=== PATIENT | female | born 1955 | race Caucasian/White ===

== ENCOUNTER 2022-05-14 06:22 | Emergency (ER) | payer MEDICARE, SELFPAY ==
[2022-05-14 06:45] VITALS: BP 133/72; PULSE 74; RESP 18; TEMP 36.6; O2SAT 97
--- NOTE | 2022-05-14 06:54 | ED.PSYCH ---
HPI - Psych General Chief Complaint: Psychiatric Symptoms Stated Complaint: Manic episode Time Seen by Provider: 05/14/22 06:55 Source: patient Mode of arrival: ambulatory History of Present Illness HPI Narrative: 66-year-old female history depression with psychotic symptoms, anxiety, Hypothyroidism presents to the ER with -- inability to relax and rest. She is not been able to sleep for the past 2 days. She had been on Seroquel and trazodone which did not help. She recently saw a physician in [place] who prescribed her Lamictal and Zyprexa. She has just taken 1 dose of Zyprexa. She denies suicidal or homicidal ideation. no history of drug or alcohol use. MD complaint: other ( anxious) Onset (ago): day(s) Duration: constant History of same: Yes Relieving factors: none Exacerbating factors: none Context: recent alcohol abuse Associated symptoms: denies other symptoms Treatments prior to arrival: none ( Patient is on Zyprexa and Lamictal. She has just taken 1 dose of Zyprexa but has not started on Lamictal) Related Data Home Medications Medication Instructions Recorded Confirmed buprenorphine 8 mg-naloxone 2 mg 8 film buccal PRN 05/14/22 05/14/22 sublingual film lamotrigine 25 mg tablet 25 mg PO DAILY 05/14/22 05/14/22 levothyroxine 125 mcg tablet 125 mcg PO DAILY 05/14/22 05/14/22 olanzapine 5 mg tablet 5 mg PO DAILY 05/14/22 05/14/22 trazodone 100 mg tablet 100 mg PO DAILY 05/14/22 05/14/22 Allergies Allergy/AdvReac Type Severity Reaction Status Date / Time cefaclor Allergy Unknown Skin Verified 05/14/22 06:41 Reaction Review of Systems Review of Systems: All systems reviewed & are unremarkable except as noted in HPI and below Constitutional: Constitutional: Reports as per HPI and Reports no additional constitutional complaints Eyes: Eyes: Reports as per HPI and Reports no additional eye complaints ENT: Reports system reviewed and no additional complaints, except as documented and Reports as per HPI Cardiovascular: Cardiovascular: Reports as per HPI and Reports no additional cardiovascular complaints Respiratory: Respiratory: Reports as per HPI and Reports no additional respiratory complaints Gastrointestinal: Gastrointestinal: Reports as per HPI and Reports no additional gastrointestinal complaints Genitourinary: Genitourinary: Reports no additional female genitourinary complaints and Reports as per HPI Musculoskeletal: Musculoskeletal: Reports no additional musculoskeletal complaints and Reports as per HPI Integumentary/Breasts: Skin/Breast: Reports system reviewed and no additional complaints, except as docu and Reports as per HPI Neurologic: Reports system reviewed and no additional complaints, except as documented and Reports as per HPI Psychiatric: Psychiatric: Reports no additional psychiatric complaints, Reports as per HPI and Reports anxiety Endocrine: Endocrine: Reports no additional endocrine complaints and Reports as per HPI Hematologic/Lymphatic: Hematologic/Lymphatic: Reports no additional hematologic/lymphatic complaints and Reports as per HPI Allergic/Immunologic: Allergic/Immunologic: Reports no additional allergic/immunologic complaints and Reports as per HPI PMFSH Past Medical History Medical History Gastric bezoar Surgical History Surgical History H/O exploratory laparotomy Social History Social History Substance use type: former substance user Exam Const: General: healthy appearing and no acute distress Nutritional Appearance: well nourished Orientation/consciousness: patient oriented x3 Limitations: no limitations HENMT: Head: normal to inspection Ears: external ears normal General nose exam: Normal external nose present Face and sinus: normal facial exam Mouth: Yes Normal oral and pa
--- NOTE | 2022-05-14 07:03 | PC.NURSE ---
report given to Dary woodward
[2022-05-14 07:30] VITALS: BP 129/64; PULSE 65; RESP 20; TEMP 36.8; O2SAT 98
[2022-05-14] MEDS: OLANZapine 10 MG INJ VIAL 5 MG IM (07:43)
[2022-05-14 08:23] VITALS: BP 126/78; PULSE 80; RESP 20; TEMP 36.6; O2SAT 99
== END 2022-05-14 08:27 | disposition home or self-care (01) ==
PROVIDERS: Emergency Provider Internal Medicine Critical Care Medicine; PCP Family Medicine
DX: F41.9 Anxiety disorder, unspecified (principal)
CPT/HCPCS: 96372; 99283

== ENCOUNTER 2022-07-27 06:16 | Emergency (ER) | payer MEDICARE, SELFPAY ==
[2022-07-27] VITALS (13 sets, daily range): BP systolic 125–144; BP diastolic 42–73; PULSE 70–75; RESP 16–22; TEMP 37; O2SAT 93–100
--- NOTE | ~2022-07-27 | CT_ITS ---
EXAMINATION: CT abdomen pelvis wo con DATE: 07/27/2022 07:53 INDICATION: Right lower quadrant abdominal pain. Nausea. TECHNIQUE: Computed tomography (CT) of the abdomen and pelvis was performed without intravenous contr ast. Automated exposure control and iterative reconstruction technique were employed. The dose-length product was 320.88 mGy-cm. COMPARISON: None. FINDINGS: The visualized portions of the lung bases demonstrate mild atelectasis. No pleural effusion . The heart size is normal. No pericardial effusion. There is a small sliding hiatal hernia. The live r, gallbladder, spleen, pancreas, adrenal glands, and left kidney are normal. There is a 3 mm stone i n right kidney. There is diverticulosis of the colon without evidence of diverticulitis. The appendix is not visualized. There is wall thickening of the rectosigmoid. There are no pathologically enlarge d lymph nodes. There is no free intraperitoneal fluid. There is dextroscoliosis of lumbar spine. IMPRESSION: 1. Wall thickening of the rectosigmoid, consistent with colitis. 2. Small sliding hiatal hernia. Reviewed, dictated and finalized at location B.
[2022-07-27 06:33] LABS: Appearance Urine Clear (Clear); Bilirubin Urine Negative (Negative); Blood Urine Negative (Negative); Glucose Urine UA Negative (Negative); Ketones Urine Negative (Negative); Leukocyte Esterase Ur Negative LEU/UL (Negative); Nitrate Urine Negative (Negative); Protein Urine Negative (Negative); Urobilinogen Urine 0.2 mg/dL (0.2-1.0)
[2022-07-27 06:34] LABS: Add Urine Microscopic? NO; Color Urine Light Yellow (Yellow)
[2022-07-27 07:17] LABS: Basophils Absolute Auto 0.03 K/mm3 (0.00-0.10); Basophils Percent Auto 0.5 % (0.0-1.0); Eosinophils Absolute Auto 0.08 K/mm3 (0.02-0.50); Eosinophils Percent Auto 1.3 % (1.0-6.0); Hemoglobin 11.9 g/dL (11.7-13.8); Immature Granulocyte Absolute 0.01 K/mm3 (0.00-0.00); Immature Granulocyte Percent A 0.2 % (0.0-0.0); Lymphocytes Absolute Auto 1.35 K/mm3 (1.10-4.50); Lymphocytes Percent Auto 22.5 % (18.0-42.0); Mean Corpuscular HGB Conc 32.2 g/dL (32.0-36.0); Mean Corpuscular Hemoglobin 30.4 pg (27.0-31.0); Mean Corpuscular Volume 94.4 fL (78.0-102.0); Mean Platelet Volume 10.4 fl (9.2-11.8); Monocytes Absolute Auto 0.41 K/mm3 (0.10-0.90); Monocytes Percent Auto 6.8 % (2.0-11.0); Neutrophils Absolute Auto 4.1 K/mm3 (1.7-7.2); Neutrophils Percent Auto 68.7 % (50.0-70.0); Platelet Count Result 212 K/mm3 (150-420); Red Blood Count 3.92 M/mm3 (4.20-5.40); Red Cell Distribution Width 11.7 % (11.6-14.4)
[2022-07-27 07:33] LABS: Alanine Aminotransferase 12 U/L (14-59); Albumin Level 3.6 g/dL (3.4-5.0); Alkaline Phosphatase 56 U/L (46-116); Amylase 47 U/L (25-115); Anion Gap -8 mmol/L (8-16); Aspartate Amino Transferase 14 U/L (15-37); Bilirubin,Total 0.3 mg/dL (0.00-1.00); Blood Urea Nitrogen 11 mg/dL (7-18); Calcium 8.8 mg/dL (8.5-10.1); Carbon Dioxide 29 mmol/L (21-32); Chloride 104 mmol/L (98-108); Estimated CRCL calculation 46 ml/min; Estimated Glomerular Filt Rate > 60; Glucose 99 mg/dL (70-99); Lipase 61 U/L (73-393); Osmolality Calculated 259 mOsm/kg (285-295); Potassium 3.3 mmol/L (3.5-5.1); Sodium 125 mmol/L (136-145); Total Protein 6.7 g/dL (6.4-8.2)
[2022-07-27 07:36] LABS: CRP < 0.2 mg/dL (0.0-0.9)
[2022-07-27 07:37] LABS: Lactic Acid Reflex 1.4 mmol/L (0.4-2.0)
--- NOTE | 2022-07-27 07:50 | PC.NURSE ---
pt is in ct at this time. pt reported she will be able to find a ride home in order to receive morphine that was ordered. pt reported that she was in pain and that the waist band on my pants even hurt.' pt reports nausea associated.
[2022-07-27] MEDS: SODIUM CHLORIDE 0.9% IV 1,000 ML 999 ML IV CONT (07:58)
[2022-07-27] MEDS: PANTOPRAZOLE SODIUM IV 40 MG VIAL IV PUSH (07:59)
[2022-07-27] MEDS: ONDANSETRON INJ 4 MG/2 ML VIAL IV PUSH (08:00)
[2022-07-27] MEDS: MORPHINE SULFATE (*CRX) 2 MG/ML INJ IV PUSH (08:02)
[2022-07-27] MEDS: KCL 20 MEQ/SW 100 ML 100 ML 50 MEQ IVPB (08:03)
--- NOTE | 2022-07-27 08:55 | PC.NURSE ---
pt reports the potassium is burning and wants drip stopped. drip is stopped and erp is aware. pt will not allow titration of the medication. pt was up to rr without difficulty, lying on stretcher watching tv. nad noted. will continue to monitor.
--- NOTE | 2022-07-27 09:21 | PC.NURSE ---
iv medication infusing as ordered without difficulty. pt is calling for transport home. will continue to monitor.
--- NOTE | 2022-07-27 09:42 | PC.NURSE ---
pt up to rr without distress. pt is awaiting ride to arrive, reports she will be here around 1030. will continue to monitor.
--- NOTE | 2022-07-27 09:45 | ED.ABDPAIN ---
HPI - Abdominal Pain General Chief Complaint: Abdominal Pain Stated Complaint: Abd Pain Time Seen by Provider: 07/27/22 07:03 Source: patient and RN notes reviewed Mode of arrival: ambulatory Limitations: no limitations History of Present Illness MD elicited complaint: abdominal pain Pertinent past history: none Onset (ago): day(s) (3) Pain Consistency: colicky Location: diffuse and suprapubic Severity: mild Pain scale (0-10): 5 Quality: cramping, aching and dull Radiation: none Migration to: periumbilical Exacerbating factors: nothing Relieving factors: nothing Associated symptoms: nausea Related Data Patient : No Home Medications Medication Instructions Recorded Confirmed buprenorphine 8 mg-naloxone 2 mg 8 film buccal PRN 05/14/22 07/27/22 sublingual film levothyroxine 125 mcg tablet 125 mcg PO DAILY 05/14/22 07/27/22 olanzapine 5 mg tablet 5 mg PO DAILY 05/14/22 07/27/22 trazodone 100 mg tablet 100 mg PO DAILY 05/14/22 07/27/22 meloxicam 15 mg tablet 15 mg PO DAILY 07/27/22 07/27/22 Allergies Allergy/AdvReac Type Severity Reaction Status Date / Time cefaclor Allergy Unknown Skin Verified 05/14/22 06:41 Reaction Review of Systems Review of Systems: All systems reviewed & are unremarkable except as noted in HPI and below Constitutional: Constitutional: Reports no additional constitutional complaints Eyes: Eyes: Reports no additional eye complaints ENT: Reports system reviewed and no additional complaints, except as documented Cardiovascular: Cardiovascular: Reports no additional cardiovascular complaints Respiratory: Respiratory: Reports no additional respiratory complaints Gastrointestinal: Gastrointestinal: Reports abdominal pain and Reports nausea Genitourinary: Genitourinary: Reports no additional female genitourinary complaints Musculoskeletal: Musculoskeletal: Reports no additional musculoskeletal complaints Integumentary/Breasts: Skin/Breast: Reports system reviewed and no additional complaints, except as docu Neurologic: Reports system reviewed and no additional complaints, except as documented Psychiatric: Psychiatric: Reports no additional psychiatric complaints Endocrine: Endocrine: Reports no additional endocrine complaints Hematologic/Lymphatic: Hematologic/Lymphatic: Reports no additional hematologic/lymphatic complaints Allergic/Immunologic: Allergic/Immunologic: Reports no additional allergic/immunologic complaints PMFSH Past Medical History Medical History Colitis Gastric bezoar Surgical History Surgical History H/O exploratory laparotomy Social History Social History Substance use type: former substance user Exam Const: General: healthy appearing, no acute distress and well nourished Nutritional Appearance: well nourished Orientation/consciousness: patient oriented x3 Limitations: no limitations HENMT: Head: normal to inspection Ears: external ears normal, TM's normal bilaterally and EAC's normal Face/Nose/Sinus: Normal external nose present, Normal nares present, normal facial exam and sinuses nontender Face and sinus: normal facial exam and sinuses nontender Mouth: Yes Normal oral and palatal mucosa present and Yes moist mucous membranes Teeth and gingiva: dentition normal Throat: posterior oropharynx normal Eyes: Conjunctivae: conjunctivae normal Pupils: Equal, round and reactive pupils present EOM: EOMs intact bilaterally Neck: Neck: normal visual inspection, no lymphadenopathy and no meningeal signs Chest: Chest palpation & inspection: normal inspection of the chest Resp: Effort & Inspection: normal respiratory effort Auscultation: clear to auscultation bilaterally Cardio: Rate: regular rate Rhythm: regular rhythm GI: GI Palp: Yes Soft to palpation and Yes Tende
--- NOTE | 2022-07-27 10:31 | PC.NURSE ---
RX WERE CALLED INTO [facility] REQUESTED BY PT DUE TO [facility] CLOSING AND PT DOES NOT WANT TO GO TO [facility].
== END 2022-07-27 10:05 | disposition home or self-care (01) ==
PROVIDERS: Emergency Medicine; Emergency Provider Emergency Medicine; PCP Family Medicine
DX: K52.9 Noninfective gastroenteritis and colitis, unspecified (principal)
CPT/HCPCS: 36415; 74176; 80053; 81003; 82150; 83605; 83690; 85025; 86140; 96365; 96367; 96375; 99284; C9113; J2270; J2405; J2543; J3480; J7030

== ENCOUNTER 2022-07-30 08:15 | Emergency (ER) | payer MEDICARE, SELFPAY ==
[2022-07-30 08:26] VITALS: BP 134/69; PULSE 90; RESP 16; TEMP 36.1; O2SAT 98
[2022-07-30] MEDS: KETOROLAC 30 MG/ML VIAL (*BKC) IM (08:55)
[2022-07-30 09:01] LABS: Basophils Absolute Auto 0.05 K/mm3 (0.00-0.10); Basophils Percent Auto 0.9 % (0.0-1.0); Eosinophils Absolute Auto 0.09 K/mm3 (0.02-0.50); Eosinophils Percent Auto 1.6 % (1.0-6.0); Hematocrit 35.5 % (35.0-42.0); Hemoglobin 11.3 g/dL (11.7-13.8); Immature Granulocyte Absolute 0.01 K/mm3 (0.00-0.00); Immature Granulocyte Percent A 0.2 % (0.0-0.0); Lymphocytes Absolute Auto 1.31 K/mm3 (1.10-4.50); Lymphocytes Percent Auto 22.7 % (18.0-42.0); Mean Corpuscular HGB Conc 31.8 g/dL (32.0-36.0); Mean Corpuscular Hemoglobin 30.4 pg (27.0-31.0); Mean Corpuscular Volume 95.4 fL (78.0-102.0); Mean Platelet Volume 10.5 fl (9.2-11.8); Monocytes Absolute Auto 0.49 K/mm3 (0.10-0.90); Monocytes Percent Auto 8.5 % (2.0-11.0); Neutrophils Absolute Auto 3.8 K/mm3 (1.7-7.2); Neutrophils Percent Auto 66.1 % (50.0-70.0); Platelet Count Result 208 K/mm3 (150-420); Red Blood Count 3.72 M/mm3 (4.20-5.40); Red Cell Distribution Width 11.7 % (11.6-14.4); White Blood Count 5.8 K/mm3 (4.8-10.8)
[2022-07-30 09:04] LABS: Add Urine Microscopic? YES; Appearance Urine Clear (Clear); Bilirubin Urine Negative (Negative); Blood Urine Negative (Negative); Color Urine Yellow (Yellow); Glucose Urine UA Negative (Negative); Ketones Urine Negative (Negative); Leukocyte Esterase Ur Trace LEU/UL (Negative); Nitrate Urine Negative (Negative); Protein Urine Negative (Negative); Specific Grav Ur 1.015 (1.010-1.020); Urobilinogen Urine 0.2 mg/dL (0.2-1.0)
[2022-07-30 09:09] LABS: Bacteria Urine Trace /hpf; Mucus Urine Few /lpf; RBC Urine None seen /hpf (0-2); Squamous Epithelial Cell Urine Few /hpf (Few); WBC Urine 0-3 /hpf (0-3)
--- NOTE | 2022-07-30 09:12 | ED.ABDPAIN ---
HPI - Abdominal Pain General Chief Complaint: Abdominal Pain Stated Complaint: ABD PAIN Time Seen by Provider: 07/30/22 08:22 Source: patient Mode of arrival: ambulatory Limitations: no limitations History of Present Illness HPI narrative: this is a 67-year-old female that was recently seen in our emergency department about 3 days ago with abdominal pain localizing to her left lower quadrant had a CT scan which showed that she had acute colitis was started on antibiotics, currently the patient returned because she advanced her diet too soon and start developing some dull aching in her left lower quadrant. Currently there is no fever chills are vitals are stable, rates her pain about a 5/10 with no dysuria no flank pain no hematuria. MD elicited complaint: abdominal pain Pertinent past history: constipation Onset (ago): day(s) Pain Consistency: intermittent Location: LLQ Severity: mild Quality: dull Radiation: none Migration to: no migration Exacerbating factors: eating Related Data Home Medications Medication Instructions Recorded Confirmed buprenorphine 8 mg-naloxone 2 mg 8 film buccal PRN 05/14/22 07/30/22 sublingual film levothyroxine 125 mcg tablet 125 mcg PO DAILY 05/14/22 07/30/22 olanzapine 5 mg tablet 5 mg PO DAILY 05/14/22 07/30/22 trazodone 100 mg tablet 100 mg PO DAILY 05/14/22 07/30/22 meloxicam 15 mg tablet 15 mg PO DAILY 07/27/22 07/30/22 Allergies Allergy/AdvReac Type Severity Reaction Status Date / Time cefaclor Allergy Unknown Skin Verified 07/30/22 08:30 Reaction Review of Systems Review of Systems: All systems reviewed & are unremarkable except as noted in HPI and below PMFSH Past Medical History Medical History Colitis Gastric bezoar Surgical History Surgical History H/O exploratory laparotomy Social History Social History Substance use type: former substance user Exam Const: General: healthy appearing and no acute distress Limitations: no limitations and altered mental status HENMT: Head: normal to inspection Ears: external ears normal Face/Nose/Sinus: Normal external nose present Face and sinus: normal facial exam Mouth: Yes Normal oral and palatal mucosa present Teeth and gingiva: dentition normal Eyes: Conjunctivae: conjunctivae normal Pupils: Equal, round and reactive pupils present Neck: Neck: normal visual inspection, no lymphadenopathy and no meningeal signs Chest: Chest palpation & inspection: normal inspection of the chest Resp: Effort & Inspection: normal respiratory effort Auscultation: clear to auscultation bilaterally Cardio: Rate: regular rate Rhythm: regular rhythm GI: GI Palp: Yes Soft to palpation and Yes Tenderness to palpation present (GI) : General: Yes bladder normal to palpation Back/Spine/Pelvis: Back: no CVA tenderness Skin: General skin exam: normal color Rashes: no rashes Neuro: General: patient oriented x3, moves all extremities, no meningeal signs and no focal motor deficits Extrem: General: normal to inspection, no clubbing, cyanosis or edema and no pedal edema Psych: Mental Status: mental status grossly normal Affect: normal affect Course Course Emergency Course: Patient received IM Toradol reassessment of patient pain level has improved, patient was nauseous and received ODT Zofran, labs reviewed with patient, overall patient feeling more comfortable. Vital Signs Vital signs: Vital Signs Temperature 36.1 C L 07/30/22 08:26 Pulse Rate 90 07/30/22 08:26 Respiratory Rate 16 07/30/22 08:26 Blood Pressure 134/69 07/30/22 08:26 Pulse Oximetry 98 07/30/22 08:26 Oxygen Delivery Room Air 07/30/22 08:26 Temperature 36.1 C L 07/30/22 08:26 Pulse Rate 90 07/30/22 08:26 Respiratory Rate 16 07/30/22 08:26 Blood Pressure
[2022-07-30 09:15] LABS: Partial Thromboplastin Time 28.5 SEC (23.90-30.70); Prothrombin Time 11.3 Seconds (9.50-12.10)
[2022-07-30] MEDS: ONDANSETRON HCL ODT 4 MG TABLET PO (09:16)
[2022-07-30 09:17] LABS: Alanine Aminotransferase 16 U/L (14-59); Alkaline Phosphatase 63 U/L (46-116); Anion Gap 7 mmol/L (8-16); Aspartate Amino Transferase 13 U/L (15-37); Bilirubin,Total 0.3 mg/dL (0.00-1.00); Blood Urea Nitrogen 12 mg/dL (7-18); Calcium 9.2 mg/dL (8.5-10.1); Carbon Dioxide 30 mmol/L (21-32); Chloride 102 mmol/L (98-108); Estimated Glomerular Filt Rate > 60; Glucose 99 mg/dL (70-99); Lipase 72 U/L (73-393); Osmolality Calculated 287 mOsm/kg (285-295); Potassium 3.8 mmol/L (3.5-5.1); Sodium 139 mmol/L (136-145); Total Protein 7.4 g/dL (6.4-8.2)
[2022-07-30 09:22] LABS: Lactic Acid Reflex 0.3 mmol/L (0.4-2.0)
[2022-07-30 09:37] VITALS: BP 127/68; PULSE 62; RESP 16; TEMP 36.1; O2SAT 93
== END 2022-07-30 09:40 | disposition home or self-care (01) ==
PROVIDERS: Emergency Provider Emergency Medicine; PCP Family Medicine
DX: K52.9 Noninfective gastroenteritis and colitis, unspecified (principal)
CPT/HCPCS: 36415; 80053; 81001; 83605; 83690; 85025; 85610; 85730; 96372; 99283; A9270; J1885

== ENCOUNTER 2022-08-19 10:49 | Emergency (ER) | payer MEDICARE, SELFPAY ==
[2022-08-19 10:55] VITALS: BP 127/53; PULSE 72; RESP 14; TEMP 35.8; O2SAT 99
--- NOTE | 2022-08-19 11:09 | ED.GENADULT ---
HPI - General Adult General Chief complaint: Back Pain/Injury Stated complaint: T9 fracture and in a lot of pain Time Seen by Provider: 08/19/22 11:00 History of Present Illness HPI narrative: Kika is a 67F with a PMH of chronic back pain 2/2 a T9 fracture, hypothyroidism, duodenal ulcers and previous opiate addiction that presented to the ED with back pain. It is a non-radiating aching pain in her mid back that started after doing chores. There is no numbness, weakness, paralysis, or loss of bowel or bladder control. No falls or trauma reported. She has f/u with a specialist in [place] on the . Related Data Home Medications Medication Instructions Recorded Confirmed buprenorphine 8 mg-naloxone 2 mg 8 film buccal PRN 05/14/22 08/19/22 sublingual film levothyroxine 125 mcg tablet 125 mcg PO DAILY 05/14/22 08/19/22 olanzapine 5 mg tablet 5 mg PO DAILY 05/14/22 08/19/22 trazodone 100 mg tablet 100 mg PO DAILY 05/14/22 08/19/22 meloxicam 15 mg tablet 15 mg PO DAILY 07/27/22 08/19/22 Allergies Allergy/AdvReac Type Severity Reaction Status Date / Time cefaclor Allergy Unknown Skin Verified 08/19/22 11:01 Reaction Review of Systems Review of Systems: All systems reviewed & are unremarkable except as noted in HPI and below Constitutional: Constitutional: Reports as per HPI, Reports no additional constitutional complaints, Denies chills and Denies fatigue PMFSH Past Medical History Medical History Colitis Gastric bezoar Surgical History Surgical History H/O exploratory laparotomy Social History Social History Substance use type: former substance user Exam Const: General: healthy appearing, no acute distress and alert Nutritional Appearance: well nourished Orientation/consciousness: patient oriented x3 Limitations: no limitations HENMT: Head: normal to inspection Ears: external ears normal Face/Nose/Sinus: Normal external nose present Eyes: Conjunctivae: conjunctivae normal Neck: Neck: normal visual inspection and no lymphadenopathy Chest: Chest palpation & inspection: normal inspection of the chest Resp: Effort & Inspection: normal respiratory effort Cardio: Rate: regular rate GI: Inspection: non-distended GI Palp: Yes Soft to palpation and No Tenderness to palpation present (GI) Skin: General skin exam: normal color Rashes: no rashes Wounds: no wounds Neuro: General: patient oriented x3 Cranial nerves: Yes Nystagmus not present Speech: normal speech Extrem: General: normal to inspection Psych: Mental Status: mental status grossly normal Affect: normal affect Course Vital Signs Vital signs: Vital Signs Temperature 96.5 F L 08/19/22 10:55 Pulse Rate 72 08/19/22 10:55 Respiratory Rate 14 08/19/22 10:55 Blood Pressure 127/53 L 08/19/22 10:55 Pulse Oximetry 99 08/19/22 10:55 Oxygen Delivery Room Air 08/19/22 10:55 Temperature 96.5 F L 08/19/22 10:55 Pulse Rate 72 08/19/22 10:55 Respiratory Rate 14 08/19/22 10:55 Blood Pressure 127/53 L 08/19/22 10:55 Pulse Oximetry 99 08/19/22 10:55 Oxygen Delivery Room Air 08/19/22 10:55 Medical Decision Making Vital Signs Vital Signs: Vital Signs Temperature 96.5 F L 08/19/22 10:55 Pulse Rate 72 08/19/22 10:55 Respiratory Rate 14 08/19/22 10:55 Blood Pressure 127/53 L 08/19/22 10:55 Pulse Oximetry 99 08/19/22 10:55 Oxygen Delivery Room Air 08/19/22 10:55 Temperature 96.5 F L 08/19/22 10:55 Pulse Rate 72 08/19/22 10:55 Respiratory Rate 14 08/19/22 10:55 Blood Pressure 127/53 L 08/19/22 10:55 Pulse Oximetry 99 08/19/22 10:55 Oxygen Delivery Room Air 08/19/22 10:55 Discharge Plan Discharge Clinical Impression: Back pain Patient Disposition: Home, Self-Care Condit
--- NOTE | 2022-08-19 11:37 | PC.NURSE ---
PT DECLINES INJECTION. ERP IS AWARE.
== END 2022-08-19 11:35 | disposition home or self-care (01) ==
LOC: CHSED 11:56
PROVIDERS: Emergency Provider Family Medicine; PCP Family Medicine
DX: M54.9 Dorsalgia, unspecified (principal)
CPT/HCPCS: 99283

== ENCOUNTER 2022-09-17 07:24 | Emergency (ER) | payer MEDICARE, SELFPAY ==
--- NOTE | ~2022-09-17 | CT_ITS ---
EXAMINATION: CT abdomen pelvis w con DATE: 09/17/2022 09:52 INDICATION: Abdominal pain. Nausea and vomiting. TECHNIQUE: Computed tomography (CT) of the abdomen and pelvis was performed with 100 mL Omnipaque 350 intravenous contrast. Automated exposure control and iterative reconstruction technique were employe d. The dose-length product was 317.04 mGy-cm. COMPARISON: CT abdomen and pelvis 07/27/2022 FINDINGS: The visualized portions of the lung bases demonstrate mild atelectasis. No pleural effusion . The heart size is normal. No pericardial effusion. There is a small sliding hiatal hernia. The live r, gallbladder, spleen, pancreas, adrenal glands, and left kidney are normal. There is a 3 mm stone i n right kidney. There is diverticulosis of the colon without evidence of diverticulitis. The appendix is normal. There are no pathologically enlarged lymph nodes. There is no free intraperitoneal fluid. There is mild lumbar spondylosis. Lumbar dextroscoliosis is noted. IMPRESSION: 1. Small sliding hiatal hernia. 2. Small nonobstructing right kidney stone. Reviewed, dictated and finalized at location E. [facility]INING
[2022-09-17 08:20] VITALS: BP 127/69; PULSE 67; RESP 20; TEMP 35.9; O2SAT 99
--- NOTE | 2022-09-17 08:36 | ECG_ITS ---
Measurements Intervals [place] Rate: 56 P: -3 NH: 140 QRS: 54 QRSD: 99 T: 37 QT: 447 QTc: 433 Interpretive Statements SINUS BRADYCARDIA OTHERWISE UNREMARKABLE ECG NO PREVIOUS ECG AVAILABLE FOR COMPARISON Electronically Signed On 09-18-2022 7:50:15 TRAIN ANNOUNCER by David Campos M.D.
[2022-09-17 09:04] LABS: Basophils Absolute Auto 0.04 K/mm3 (0.00-0.10); Basophils Percent Auto 0.5 % (0.0-1.0); Eosinophils Absolute Auto 0.09 K/mm3 (0.02-0.50); Eosinophils Percent Auto 1.2 % (1.0-6.0); Hematocrit 38.5 % (35.0-42.0); Hemoglobin 12.5 g/dL (11.7-13.8); Immature Granulocyte Absolute 0.02 K/mm3 (0.00-0.00); Immature Granulocyte Percent A 0.3 % (0.0-0.0); Lymphocytes Absolute Auto 1.45 K/mm3 (1.10-4.50); Lymphocytes Percent Auto 18.7 % (18.0-42.0); Mean Corpuscular HGB Conc 32.5 g/dL (32.0-36.0); Mean Corpuscular Hemoglobin 30.6 pg (27.0-31.0); Mean Corpuscular Volume 94.1 fL (78.0-102.0); Mean Platelet Volume 10.4 fl (9.2-11.8); Monocytes Absolute Auto 0.49 K/mm3 (0.10-0.90); Monocytes Percent Auto 6.3 % (2.0-11.0); Neutrophils Absolute Auto 5.7 K/mm3 (1.7-7.2); Platelet Count Result 227 K/mm3 (150-420); Red Blood Count 4.09 M/mm3 (4.20-5.40); Red Cell Distribution Width 11.9 % (11.6-14.4); White Blood Count 7.8 K/mm3 (4.8-10.8)
[2022-09-17 09:05] LABS: Add Urine Microscopic? YES; Appearance Urine Clear (Clear); Bilirubin Urine Negative (Negative); Blood Urine Negative (Negative); Color Urine Yellow (Yellow); Glucose Urine UA Negative (Negative); Ketones Urine Trace (Negative); Leukocyte Esterase Ur Negative LEU/UL (Negative); Nitrate Urine Negative (Negative); Protein Urine Negative (Negative); Specific Grav Ur 1.025 (1.010-1.020); Urobilinogen Urine 0.2 mg/dL (0.2-1.0)
[2022-09-17 09:12] LABS: Bacteria Urine Trace /hpf; RBC Urine None seen /hpf (0-2); Squamous Epithelial Cell Urine Few /hpf (Few); WBC Urine None seen /hpf (0-3)
[2022-09-17] MEDS: SODIUM CHLORIDE 0.9% IV 1,000 ML 999 ML IV CONT (09:18)
[2022-09-17] MEDS: ONDANSETRON INJ 4 MG/2 ML VIAL IV PUSH (09:19)
[2022-09-17] MEDS: PANTOPRAZOLE SODIUM IV 40 MG VIAL IV PUSH (09:20)
[2022-09-17 09:25] LABS: Alanine Aminotransferase 18 U/L (14-59); Alkaline Phosphatase 76 U/L (46-116); Anion Gap 7 mmol/L (8-16); Aspartate Amino Transferase 15 U/L (15-37); Bilirubin,Total 0.4 mg/dL (0.00-1.00); Blood Urea Nitrogen 16 mg/dL (7-18); Calcium 9.1 mg/dL (8.5-10.1); Carbon Dioxide 31 mmol/L (21-32); Chloride 105 mmol/L (98-108); Estimated CRCL calculation 44 ml/min; Estimated Glomerular Filt Rate 57; Glucose 100 mg/dL (70-99); Lipase 63 U/L (73-393); Osmolality Calculated 297 mOsm/kg (285-295); Potassium 3.6 mmol/L (3.5-5.1); Sodium 143 mmol/L (136-145); Total Protein 7.6 g/dL (6.4-8.2); Troponin I 10.4 ng/L (0.00-60.4)
[2022-09-17 09:27] LABS: Lactic Acid Reflex 0.4 mmol/L (0.4-2.0)
[2022-09-17 09:42] LABS: SARS-CoV-2 RNA PCR Negative (Negative)
[2022-09-17 09:58] LABS: Influenza A QL RT-PCR Negative (Negative); Influenza B QL RT-PCR Negative (Negative)
--- NOTE | 2022-09-17 10:04 | ED.NAVMDI ---
HPI - Nausea/Vomiting/Diarrhea General Chief complaint: Nausea/Vomiting/Diarrhea Stated complaint: VOMITING Time Seen by Provider: 09/17/22 07:30 Source: patient Mode of arrival: ambulatory Limitations: no limitations History of Present Illness HPI Narrative: This is a 67-year-old female with history of colitis presents with multiple episodes of nausea vomiting with diffuse abdominal pain, with epigastric discomfort. The patient had started having episodes of nausea vomiting with abdominal discomfort over the last 2 days with no diarrhea or constipation no fever chills, the patient does have a headache with no blurry vision. No fever chills no chest pain no shortness of breath no flank pain no dysuria. MD elicited complaint: nausea, vomiting and abdominal pain Onset (ago): day(s) Description of vomiting: watery Associated nausea: Yes Associated abdominal pain: Yes Location of pain: diffuse and epigastric Severity: moderate Related Data Home Medications Medication Instructions Recorded Confirmed buprenorphine 8 mg-naloxone 2 mg 8 film buccal PRN 05/14/22 09/17/22 sublingual film levothyroxine 125 mcg tablet 125 mcg PO DAILY 05/14/22 09/17/22 trazodone 100 mg tablet 100 mg PO DAILY 05/14/22 09/17/22 meloxicam 15 mg tablet 15 mg PO DAILY 07/27/22 09/17/22 Allergies Allergy/AdvReac Type Severity Reaction Status Date / Time cefaclor Allergy Unknown Skin Verified 09/17/22 08:41 Reaction Review of Systems Review of Systems: All systems reviewed & are unremarkable except as noted in HPI and below PMFSH Past Medical History Medical History Colitis Gastric bezoar Surgical History Surgical History H/O exploratory laparotomy Social History Social History Substance use type: former substance user Exam Const: General: healthy appearing Nutritional Appearance: well nourished Orientation/consciousness: patient oriented x3 Limitations: no limitations HENMT: Head: normal to inspection Face and sinus: normal facial exam Mouth: Yes Normal oral and palatal mucosa present Eyes: Conjunctivae: conjunctivae normal Pupils: Equal, round and reactive pupils present EOM: EOMs intact bilaterally Neck: Neck: no lymphadenopathy and no meningeal signs Chest: Chest palpation & inspection: normal inspection of the chest Resp: Effort & Inspection: normal respiratory effort Auscultation: clear to auscultation bilaterally Cardio: Rate: regular rate Rhythm: regular rhythm GI: GI Palp: Yes Soft to palpation Auscultation: normal bowel sounds Urinary Catheter: Urinary Catheter: patent and draining Skin: General skin exam: normal color Rashes: no rashes Wounds: no wounds Neuro: General: patient oriented x3 Cranial nerves: Yes Nystagmus not present Speech: normal speech Gait exam (Neuro): Normal gait present Extrem: General: normal to inspection Psych: Mental Status: mental status grossly normal Affect: normal affect Attitude: cooperative Course Course Emergency Course: Labs reviewed with patient and CT abdomen as well. Patient did have IV Tylenol 1g, IV fluids and IV Zofran and reassessment patient her symptoms have improved as well as receiving IV Protonix. Vital Signs Vital signs: Vital Signs Temperature 35.9 C L 09/17/22 08:20 Pulse Rate 67 09/17/22 08:20 Respiratory Rate 20 09/17/22 08:20 Blood Pressure 127/69 09/17/22 08:20 Pulse Oximetry 99 09/17/22 08:20 Oxygen Delivery Room Air 09/17/22 08:20 Temperature 35.9 C L 09/17/22 08:20 Pulse Rate 67 09/17/22 08:20 Respiratory Rate 20 09/17/22 08:20 Blood Pressure 127/69 09/17/22 08:20 Pulse Oximetry 99 09/17/22 08:20 Oxygen Delivery Room Air 09/17/22 08:20 MDM - Nausea/Vomiting/Diarrhea Lab Data 09/17/22 08:58
[2022-09-17 10:48] VITALS: BP 118/62; PULSE 84; RESP 16; TEMP 36.6; O2SAT 99
== END 2022-09-17 10:50 | disposition home or self-care (01) ==
PROVIDERS: Emergency Provider Emergency Medicine; PCP Family Medicine
DX: K52.9 Noninfective gastroenteritis and colitis, unspecified (principal); R11.2 Nausea with vomiting, unspecified
CPT/HCPCS: 36415; 74177; 80053; 81001; 83605; 83690; 84484; 85025; 87502; 93005; 96361; 96374; 96375; 99284; C9113; J0131; J2405; J7030; Q9967; U0003; U0005

== ENCOUNTER 2022-10-27 10:36 | Outpatient (CLI) | payer MEDICARE, SELFPAY ==
--- NOTE | ~2022-10-27 | XR_ITS ---
XR chest 2V DATE: 10/27/2022 11:17 INDICATION: Chest tightness, shortness of breath for 2 months. History of T9 fracture. TECHNIQUE: 2 views COMPARISON: 12/16/2007 left RIBS with PA expiration chest radiograph FINDINGS: Moderate T9 chronic compression fracture deformity and probable old fracture deformity of t he lower sternum. Osteopenia. Normal heart size. No hilar or mediastinal enlargement. No pulmonary infiltrate or consolidation, ple ural effusion or pulmonary vascular congestion or pneumothorax is detected. IMPRESSION: No active cardiopulmonary disease Reviewed, dictated and finalized at location L. LE HOME SET UP PERSON
--- NOTE | ~2022-10-27 | XR_ITS ---
Right wrist Technique: PA, oblique, lateral, and ulnar deviation views were obtained. Clinical History: Pain Findings: No acute fracture or dislocation is seen. Evidence of prior ORIF for distal radial fracture , now healed.. Joint spaces are preserved. Soft tissues are unremarkable. Impression: No acute abnormality. Prior ORIF for now healed distal radial fracture. Reviewed, dictated and finalized at location . REHENSIVE ADVISOR Impression: No acute abnormality. Prior ORIF for now healed distal radial fracture.
== END 2022-10-27 10:37 | disposition home or self-care (01) ==
LOC: CHSIMG 10:45
PROVIDERS: PCP Family Medicine; Visit Provider Family Medicine
DX: R07.9 Chest pain, unspecified (principal); M25.531 Pain in right wrist; Z98.890 Other specified postprocedural states
CPT/HCPCS: 71046; 73110

== ENCOUNTER 2022-10-29 07:45 | Emergency (ER) | payer MEDICARE, SELFPAY ==
--- NOTE | 2022-10-29 07:54 | ED.GENADULT ---
HPI - General Adult General Stated complaint: back pain Time Seen by Provider: 10/29/22 07:48 Source: patient Mode of arrival: ambulatory Limitations: no limitations History of Present Illness HPI narrative: This is a 67-year-old female with a chronic history of low back pain and history of an old fracture of her right wrist and has chronic pain is scheduled to see a body technician/painter, has not been getting relief from her meloxicam, there is no recent injuries no redness chills no erythema no swelling of the wrist. Onset (ago): day(s) Related Data Home Medications Medication Instructions Recorded Confirmed buprenorphine 8 mg-naloxone 2 mg 8 film buccal PRN 05/14/22 09/17/22 sublingual film levothyroxine 125 mcg tablet 125 mcg PO DAILY 05/14/22 09/17/22 trazodone 100 mg tablet 100 mg PO DAILY 05/14/22 09/17/22 meloxicam 15 mg tablet 15 mg PO DAILY 07/27/22 09/17/22 Allergies Allergy/AdvReac Type Severity Reaction Status Date / Time cefaclor Allergy Unknown Skin Verified 09/17/22 08:41 Reaction Review of Systems Review of Systems: All systems reviewed & are unremarkable except as noted in HPI and below PMFSH Past Medical History Medical History Colitis Gastric bezoar Surgical History Surgical History H/O exploratory laparotomy Social History Social History Substance use type: former substance user Exam Const: General: healthy appearing Nutritional Appearance: well nourished Orientation/consciousness: patient oriented x3 Limitations: no limitations HENMT: Head: normal to inspection Face/Nose/Sinus: Normal external nose present Face and sinus: normal facial exam Mouth: Yes Normal oral and palatal mucosa present Eyes: Pupils: Equal, round and reactive pupils present EOM: EOMs intact bilaterally Neck: Neck: normal visual inspection Chest: Chest palpation & inspection: normal inspection of the chest Resp: Effort & Inspection: normal respiratory effort Auscultation: clear to auscultation bilaterally Cardio: Rate: regular rate Rhythm: regular rhythm GI: GI Palp: Yes Soft to palpation : General: Yes bladder normal to palpation Urinary Catheter: Urinary Catheter: patent and draining Skin: General skin exam: normal color Rashes: no rashes Neuro: General: patient oriented x3 and moves all extremities Extrem: General: normal to inspection Psych: Mental Status: mental status grossly normal Affect: normal affect Course Course Emergency Course: Patient with right wrist pain. Critical Care Time Critical Care Time Critical Care Time: No Discharge Plan Discharge Clinical Impression: Chronic back pain Patient Disposition: Home, Self-Care Condition: Stable Instructions: Antibiotic Form, Back Pain (ED) Additional Instructions: take medicine as prescribed follow with primary care physician and body technician/painter as scheduled. Prescriptions: New tramadol 50 mg tablet 50 mg PO Q6H PRN (Reason: pain) Qty: 30 0RF No Action trazodone 100 mg tablet 100 mg PO DAILY levothyroxine 125 mcg tablet 125 mcg PO DAILY buprenorphine-naloxone 8-2 mg film 8 film buccal PRN meloxicam 15 mg tablet 15 mg PO DAILY ondansetron 4 mg tablet,disintegrating 4 mg PO Q6H PRN (Reason: nausea and vomiting) Qty: 14 0RF pantoprazole [Protonix] 40 mg tablet,delayed release (DR/EC) 40 mg PO QAM 28 Days Qty: 28 0RF Follow-up/Referrals: Misty,MD Fabrizio [Primary Care Provider] - Time of Disposition: 07:59
[2022-10-29 08:06] VITALS: BP 102/55; PULSE 63; RESP 20; TEMP 36.1; O2SAT 94
[2022-10-29 08:21] VITALS: PULSE 64; RESP 20; O2SAT 99
== END 2022-10-29 08:25 | disposition home or self-care (01) ==
LOC: CHSED 08:04
PROVIDERS: Emergency Provider Emergency Medicine; PCP Family Medicine
DX: M54.50 Low back pain, unspecified (principal); G89.29 Other chronic pain; M25.531 Pain in right wrist; Z79.1 Long term (current) use of non-steroidal anti-inflammatories (NSAID)
CPT/HCPCS: 99283

== ENCOUNTER 2023-01-04 18:05 | Emergency (ER) | payer MEDICARE, SELFPAY ==
[2023-01-04 18:07] VITALS: BP 134/70; PULSE 72; RESP 18; TEMP 36.6; O2SAT 99
[2023-01-04 18:33] VITALS: BP 127/74; PULSE 74; RESP 18; TEMP 36.8; O2SAT 94
--- NOTE | 2023-01-04 18:50 | PC.NURSE ---
On 01/04/23, the student, [neida chawla], provided care and completed [facility] documentation on this patient. I have reviewed the student's documentation and agree with the findings.
--- NOTE | 2023-01-04 19:24 | PC.NURSE ---
pt states, I have been feeling depressed that started about a month ago. I have back pain due to a T9 fracture that I take pain medication for but I ran out of pain medication 3 or 4 days ago and my doctor won't give me more medication. I have been fight opioid addiction for years. I have been having thoughts of hurting myself that started about 2 weeks ago. I have plans made. I would take pills. I have old medications that I would use. Pt would not provide specific information about what kinds of medications that she has. Pt would only say that it was old medications. This staff member asked that pt about what other plans that she had. pt stated, There are other ways to hurt yourself. Pt would not provide specific information about other ways or plans that she has to hurt her self. pt states, I really don't want to hurt myself but I think about it and I have plans. I just want to go home and watch TV, sleep, and not have any pain. If I can just get the pain to stop, I would feel better. I would rather not stay in the hospital because these beds are so uncomfortable. If I am going to be uncomfortable, I would rather be uncomfortable and miserable at home.
--- NOTE | 2023-01-04 20:55 | ED.PSYCH ---
HPI - Psych General Chief Complaint: Psychiatric Symptoms Stated Complaint: Depression Time Seen by Provider: 01/04/23 18:38 History of Present Illness HPI Narrative: 67-year-old white female with long history of depression, hypothyroidism, presents with increasing depression over the past 6 months or so. She reports that she stopped her antidepressant about 3 months ago, and stopped her thyroid medication about a month ago. At she reports that her depression has gotten to the point where she just does not want to live anymore, and is contemplating taking a medication overdose. She states she is not doing any of his issues she likes to do, has withdrawn from her friends, does not really cook anymore, does not really eat normal meals, Just kind of Grazes . her friend brings her in today because he has watched her get more and more depressed, has tried to get her involved with physical therapy, exercise, activities, and she just lacks The motivation. She reports she has chronic back pain, and at 1 time was dependent on narcotics, got off of them, and have not used them for years, but the pain has gotten to the point she just can not stand it, and she did have someone put her on some tramadol while back which seemed to help. She reports they then stopped the tramadol and she has not been able to find anyone to prescribe that for her, and she reports the pain is just such that she just does not want to live anymore. She denies any focal weakness, paresthesias, radicular pain, sciatica, denies any bowel or bladder dysfunction she also denies any recent fever or chills, sore throat, coughing, sinus drainage, sore chest pain, shortness a breath, palpitations, abdominal pain, nausea vomiting, diarrhea constipation, dysuria urgency or frequency Related Data Home Medications Medication Instructions Recorded Confirmed eszopiclone 2 mg tablet (Lunesta) 2 mg PO DAILY 01/04/23 01/04/23 trazodone 100 mg tablet 100 mg PO HS 01/04/23 01/04/23 Allergies Allergy/AdvReac Type Severity Reaction Status Date / Time cefaclor Allergy Unknown Skin Verified 01/04/23 18:44 Reaction Review of Systems Review of Systems: review of systems is negative except as noted in HPI PMFSH Past Medical History Medical History Colitis Gastric bezoar Surgical History Surgical History H/O exploratory laparotomy Social History Social History Smoking status: Former smoker Substance use type: former substance user Exam Narrative: pleasant, well-oriented, very depressed affect, sobbing at times, skin changes consistent with previous tobacco use Const: General: no acute distress and alert Orientation/consciousness: patient oriented x3 Other: patient looks older than her stated age, overweight HENMT: Head: normal to inspection Face/Nose/Sinus: Normal external nose present Face and sinus: normal facial exam Mouth: Yes Normal oral and palatal mucosa present and Yes lip normal Eyes: Conjunctivae: conjunctivae normal Pupils: Equal, round and reactive pupils present EOM: EOMs intact bilaterally Neck: Neck: normal visual inspection and no lymphadenopathy Other: supple for age Resp: Effort & Inspection: normal respiratory effort Auscultation: clear to auscultation bilaterally and rhonchi ( minimal) Cardio: Rate: regular rate Rhythm: regular rhythm GI: Inspection: non-distended Other: soft, nontender, no masses, no organomegaly, no rebound or percussion tenderness, no bladder distention Skin: General skin exam: normal color Other: some skin changes consistent with previous tobacco use Neuro: General: patient oriented x3, moves all extremities, no focal motor deficits and CN's II-XI intact bilaterally Cranial nerves: Yes Nystagmus not present Speech: normal speech E
[2023-01-04 21:09] LABS: Basophils Absolute Auto 0.06 K/mm3 (0.00-0.10); Basophils Percent Auto 0.8 % (0.0-1.0); Eosinophils Absolute Auto 0.18 K/mm3 (0.02-0.50); Eosinophils Percent Auto 2.5 % (1.0-6.0); Hematocrit 31.9 % (35.0-42.0); Hemoglobin 10.4 g/dL (11.7-13.8); Immature Granulocyte Absolute 0.04 K/mm3 (0.00-0.00); Immature Granulocyte Percent A 0.6 % (0.0-0.0); Lymphocytes Absolute Auto 2.23 K/mm3 (1.10-4.50); Lymphocytes Percent Auto 31.6 % (18.0-42.0); Mean Corpuscular HGB Conc 32.6 g/dL (32.0-36.0); Mean Corpuscular Hemoglobin 31.6 pg (27.0-31.0); Mean Platelet Volume 9.9 fl (9.2-11.8); Monocytes Absolute Auto 0.54 K/mm3 (0.10-0.90); Monocytes Percent Auto 7.6 % (2.0-11.0); Neutrophils Percent Auto 56.9 % (50.0-70.0); Platelet Count Result 235 K/mm3 (150-420); Red Blood Count 3.29 M/mm3 (4.20-5.40); Red Cell Distribution Width 12.9 % (11.6-14.4); White Blood Count 7.1 K/mm3 (4.8-10.8)
[2023-01-04 21:27] LABS: SARS-CoV-2 Ag Negative (Negative)
[2023-01-04 21:33] LABS: Alanine Aminotransferase 16 U/L (14-59); Albumin Level 3.5 g/dL (3.4-5.0); Alkaline Phosphatase 53 U/L (46-116); Anion Gap 11 mmol/L (8-16); Aspartate Amino Transferase 18 U/L (15-37); Bilirubin,Total 0.3 mg/dL (0.00-1.00); Blood Urea Nitrogen 10 mg/dL (7-18); Calcium 8.4 mg/dL (8.5-10.1); Carbon Dioxide 27 mmol/L (21-32); Chloride 106 mmol/L (98-108); Estimated CRCL calculation 36 ml/min; Estimated Glomerular Filt Rate 45; Glucose 108 mg/dL (70-99); Osmolality Calculated 298 mOsm/kg (285-295); Potassium 3.3 mmol/L (3.5-5.1); Sodium 144 mmol/L (136-145); Total Protein 6.5 g/dL (6.4-8.2)
[2023-01-04 21:35] LABS: Acetaminophen 3 ug/mL (10-30); Salicylate 0.9 mg/dL (2.8-20.0); Thyroid Stimulating Hormone > 96.00 uIU/mL (0.36-3.74)
[2023-01-04 21:36] LABS: Ethanol < 3 mg/dL (0-6)
--- NOTE | 2023-01-04 21:50 | PC.NURSE ---
pt states, I am feeling anxious. Can I have something to help me calm down?
[2023-01-04] MEDS: ACETAMINOPHEN 500 MG TABLET 1000 MG PO (22:21)
[2023-01-04] MEDS: LORazepam (*CRX) 1 MG TABLET PO (22:22)
[2023-01-04 22:24] LABS: Appearance Urine Clear (Clear); Bilirubin Urine Negative (Negative); Blood Urine Negative (Negative); Color Urine Light Yellow (Yellow); Glucose Urine UA Negative (Negative); Ketones Urine Negative (Negative); Leukocyte Esterase Ur Negative LEU/UL (Negative); Nitrate Urine Negative (Negative); Protein Urine Negative (Negative); Urobilinogen Urine 0.2 mg/dL (0.2-1.0)
[2023-01-04 22:27] LABS: Add Urine Microscopic? NO
[2023-01-04 22:31] LABS: Amphetamine Screen Urine Negative (Negative); Barbiturate Screen Urine Negative (Negative); Benzodiazepines Screen Urine Negative (Negative); Cannabinoid Screen Urine Negative (Negative); Cocaine Screen Urine Negative (Negative); Methadone Screen Urine Negative (Negative); Opiate Screen Urine Negative (Negative); Phencyclidine Screen Urine Negative (Negative)
--- NOTE | 2023-01-04 22:48 | PC.NURSE ---
Monty [employer] sales representative is currently in the ER and will be evaluated by Ignacio.
[2023-01-04 22:55] LABS: Free T4 Free Thyroxine 0.33 ng/dL (0.76-1.46)
[2023-01-04] MEDS: LEVOTHYROXINE SODIUM 100 MCG, LEVOTHYROXINE SODIUM 25 MCG 125 MCG PO (23:06)
[2023-01-04 23:19] LABS: Free T3 0.56 pg/mL (2.18-3.98)
--- NOTE | 2023-01-04 23:36 | PC.NURSE ---
Ignacio from [facility] in pt room at this time
--- NOTE | 2023-01-05 02:28 | PC.NURSE ---
Addendum entered by Ross Ascencio RN 01/05/23 02:36: Юлия said that she will hold a bed and will call back at 5am with additional information. Original Note: Юлия from [facility] called to inform us that she has a bed for the pt and will hold the bed provided that the patient will sign a voluntary commitment form. Ignacio from [facility] talking to patient.
--- NOTE | 2023-01-05 02:44 | PC.NURSE ---
This staff member and Ignacio from [facility] spoke with patient concerning her transfer to [facility]. It was explained that the doctor has ordered involuntary psychiatric care but she has to agree to be transferred to [facility] voluntarily in order for [facility] to accept her for psychiatric care. Pt stated, I will go voluntarily to [facility] and sign the voluntary form. Ignacio from [facility] is obtaining required documentation.
--- NOTE | 2023-01-05 02:54 | PC.NURSE ---
Spoke with Юлия at [facility]. pt has been accepted by ANNIKA Nunez. Pt bed will be available after 10:30AM. Nurse to Nurse report can be completed after 08:30AM at [phone].
--- NOTE | 2023-01-05 05:35 | PC.NURSE ---
Юлия from [place] called to verify that the has been accepted, nurse to nurse report after 0830 and pt can be transport after 10:30am.
[2023-01-05 07:17] VITALS: BP 146/87; PULSE 73; RESP 16; O2SAT 98
[2023-01-05 07:25] VITALS: BP 107/70; PULSE 78; RESP 16; TEMP 36.2; O2SAT 99
--- NOTE | 2023-01-05 08:51 | PC.NURSE ---
0715 PT IS RESTING ON STRETCHER, SITTER AT BEDSIDE. PT IS AWAITING TRANSFER TO [facility] AT THIS TIME. NAD NOTED. PT DENIES ANY NEEDS OR COMPLAINTS. REPORT FROM [facility]. BELONGINGS ARE SECURED IN [facility] ROOM. WILL CONTINUE TO MONITOR. 0800- [facility] ARRIVES, PT DECLINES AT THIS TIME, SHE CONTINUES TO SLEEP WITHOUT DIFFICULTY. SITTER AT BEDSIDE. FRIEND RUBEN HAS CALLED AND LEFT PHONE NUMBER [phone]. NO CHANGE IN STATUS. WILL CONTINUE TO MONITOR. 0840- ATTEMPTED TO CALL REPORT TO [facility], WAS DISCONNECTED, ATTEMPTED TO CALL BACK AND NO ANSWER. WILL ATTEMPT TO CALL AGAIN LATER. NO CHANGE IN PT STATUS. WILL CONTINUE TO MONITOR.
[2023-01-05 09:21] VITALS: BP 106/66; PULSE 78; RESP 18; O2SAT 98
--- NOTE | 2023-01-05 09:50 | PC.NURSE ---
PT IS BRUSHING TEETH, AND MAKING CALL TO SIG OTHER AT THIS TIME WITH SITTER AT BEDSIDE. SHOWER KIT WAS PROVIDED. PT IS CALM AND COOPERATIVE. WILL CONTINUE TO MONITOR. PT IS AWAITING EMS FOR TRANSPORT.
== END 2023-01-05 10:05 ==
PROVIDERS: Emergency Provider Emergency Medicine; PCP Family Medicine
DX: F32.A Depression, unspecified (principal); E03.9 Hypothyroidism, unspecified; F41.9 Anxiety disorder, unspecified; R45.851 Suicidal ideations; Z20.822 Contact with and (suspected) exposure to COVID-19; Z87.891 Personal history of nicotine dependence; Z79.891 Long term (current) use of opiate analgesic
CPT/HCPCS: 36415; 80053; 80307; 81003; 84439; 84443; 84481; 85025; 87426; 99285; A9270; C9803

== ENCOUNTER 2023-04-15 12:20 | Emergency (ER) | payer MEDICARE, SELFPAY ==
[2023-04-15 12:30] VITALS: BP 110/78; PULSE 83; RESP 18; TEMP 36.8; O2SAT 96
--- NOTE | 2023-04-15 12:41 | ED.BACK ---
HPI - Back Pain/Injury General Chief Complaint: Back Pain/Injury Stated Complaint: back pain; old fracture Time Seen by Provider: 04/15/23 12:40 Source: patient Mode of arrival: ambulatory Limitations: no limitations History of Present Illness HPI Narrative: this is a 67-year-old female with chronic back pain at the T9 level and has use some [id number] medications with minimal relief no recent injury there is some T9 paravertebral tenderness with palpation there is no numbness or tingling no radiation of her pain no shortness of breath. No fever chills no nausea vomiting or abdominal pain. MD elicited complaint: back pain Pertinent past history: prior back pain Onset (ago): month(s) Timing: intermittent Severity: moderate Pain scale (0-10): 6 Quality: dull Location: thoracic spine Related Data Home Medications Medication Instructions Recorded Confirmed eszopiclone 2 mg tablet (Lunesta) 2 mg PO DAILY 01/04/23 01/04/23 trazodone 100 mg tablet 100 mg PO HS 01/04/23 01/04/23 Allergies Allergy/AdvReac Type Severity Reaction Status Date / Time cefaclor Allergy Unknown Skin Verified 04/15/23 12:42 Reaction Review of Systems Review of Systems: All systems reviewed & are unremarkable except as noted in HPI and below PMFSH Past Medical History Medical History Colitis Gastric bezoar Surgical History Surgical History H/O exploratory laparotomy Social History Social History Smoking status: Former smoker Substance use type: former substance user Exam Const: General: healthy appearing Nutritional Appearance: well nourished Limitations: no limitations HENMT: Head: normal to inspection Resp: Effort & Inspection: normal respiratory effort Auscultation: clear to auscultation bilaterally Cardio: Rate: regular rate Rhythm: regular rhythm GI: Auscultation: normal bowel sounds : General: Yes bladder normal to palpation Back/Spine/Pelvis: Back: no CVA tenderness Skin: General skin exam: normal color Rashes: no rashes Wounds: no wounds Neuro: General: patient oriented x3 Cranial nerves: Yes Nystagmus not present Extrem: Other: T9 tenderness and left paravertebral tenderness with palpation Psych: Mental Status: mental status grossly normal Affect: normal affect Course Course Emergency Course: patient with a chronic mid back pain seen her doctor recently and does receive pain medication and advised her to consult her physician for pain management referral. Vital Signs Vital signs: Vital Signs Temperature 36.8 C 04/15/23 12:30 Pulse Rate 83 04/15/23 12:30 Respiratory Rate 18 04/15/23 12:30 Blood Pressure 110/78 04/15/23 12:30 Pulse Oximetry 96 04/15/23 12:30 Oxygen Delivery Room Air 04/15/23 12:30 Temperature 36.8 C 04/15/23 12:30 Pulse Rate 83 04/15/23 12:30 Respiratory Rate 18 04/15/23 12:30 Blood Pressure 110/78 04/15/23 12:30 Pulse Oximetry 96 04/15/23 12:30 Oxygen Delivery Room Air 04/15/23 12:30 Critical Care Time Critical Care Time Critical Care Time: No Discharge Plan Discharge Clinical Impression: Acute mid back pain Condition: Stable Instructions: Antibiotic Form, Acute Low Back Pain (ED) Additional Instructions: take medicine as prescribed and follow-up with primary as soon as possible for further evaluation and treatment. Prescriptions: New oxycodone-acetaminophen [Percocet] 5-325 mg tablet 1 tablet PO Q6H PRN (Reason: pain) Qty: 10 0RF cyclobenzaprine 5 mg tablet 5 mg PO TID Qty: 20 0RF No Action trazodone 100 mg tablet 100 mg PO HS eszopiclone [Lunesta] 2 mg tablet 2 mg PO DAILY Follow-up/Referrals: Misty,MD Fabrizio [Primary Care Provider] - Time of Disposition: 12:45
== END 2023-04-15 13:01 | disposition home or self-care (01) ==
PROVIDERS: Emergency Provider Emergency Medicine; PCP Family Medicine
DX: M54.9 Dorsalgia, unspecified (principal); Z87.891 Personal history of nicotine dependence
CPT/HCPCS: 99283

== ENCOUNTER 2023-05-29 07:01 | Outpatient (CLI) | payer MEDICARE, SELFPAY ==
--- NOTE | ~2023-05-29 | MR_ITS ---
EXAMINATION: MR thoracic spine wo con DATE: 05/29/2023 07:56 INDICATION: Mid back pain. TECHNIQUE: Magnetic resonance imaging (MRI) of the thoracic spine was performed without intravenous c ontrast. Sagittal localizer T1-weighted FSE of the cervical spine was obtained. Thoracic spine sequen rahul included sagittal T2-weighted FSE, sagittal T1-weighted FSE, sagittal T2-weighted FS FSE, and axi al T2-weighted FSE. COMPARISON: Chest 2 views 10/27/22 FINDINGS: There is an old healed fracture of the sternum. Bone alignment is normal. There is a chroni c compression fracture of T9 with 2/5 loss of height. There is mildly decreased disc height at T8-T9. At T8-T9, there is a central protrusion with mild central canal stenosis. There is multilevel mild f acet joint osteoarthritis. No neural foraminal stenosis. The spinal cord signal intensity is normal. The conus medullaris is at T12-L1. There is a skin marker posterior to T6. IMPRESSION: 1. Mild thoracic spondylosis. Reviewed, dictated and finalized at location A.
== END 2023-05-29 07:02 | disposition home or self-care (01) ==
LOC: CHSIMG 07:03
PROVIDERS: PCP Family Medicine; Visit Provider Anesthesiology Pain Medicine
DX: M54.14 Radiculopathy, thoracic region (principal); M43.04 Spondylolysis, thoracic region
CPT/HCPCS: 72146

== ENCOUNTER 2023-06-10 06:46 | Emergency (ER) | payer MEDICARE, SELFPAY ==
--- NOTE | ~2023-06-10 | XR_ITS ---
Lumbosacral Spine: AP and lateral views Clinical History: Pain Findings: There is mild dextroscoliosis. The vertebral bodies and posterior elements are intact. Th e intervertebral disc spaces are preserved. The sacroiliac joints are normally outlined. Impression: Mild dextroscoliosis. No fracture or subluxation. Reviewed, dictated and finalized at [facility]. Impression: Mild dextroscoliosis. No fracture or subluxation.
--- NOTE | ~2023-06-10 | XR_ITS ---
Right elbow Technique: AP, oblique, and lateral views were obtained. Clinical History: Pain Findings: No acute fracture or dislocation is seen. Osseous alignment is anatomic. Prior ORIF noted a t the distal radius. Joint spaces are preserved. There is no displacement of the fat pads, and soft t issues are unremarkable. Impression: No acute abnormality. Prior ORIF of the distal radius. Reviewed, dictated and finalized at location . Impression: No acute abnormality. Prior ORIF of the distal radius.
--- NOTE | 2023-06-10 06:51 | ED.FALL ---
HPI - Fall General Chief Complaint: Extremity Injury, Upper Stated Complaint: FALL Time Seen by Provider: 06/10/23 06:51 Source: patient Mode of arrival: ambulatory Limitations: no limitations History of Present Illness HPI Narrative: [age] female history arthritis, T9 compression fracture colitis, gastric bezoar, status post exploratory laparotomy was attempting to change the battery on smoke when she fell the ladder. She landed on her right elbow and buttocks 1 hour ago. She presents to the ER with -- right elbow pain with decreased range of motion -- lower lumbar spine pain. Patient has chronic low back pain. MD complaint: fall Onset (ago): hour(s) ( 1 hour ago) Fall from: standing Fall witnessed: no Place fall occurred: home Loss of consciousness: none Prolonged down time: no Symptoms prior to fall: none Context: tripped/slipped Location of injury: back and other ( elbow) Location of injury - extremities: Right: elbow Severity: moderate Related Data Home Medications Medication Instructions Recorded Confirmed eszopiclone 2 mg tablet (Lunesta) 2 mg PO DAILY 01/04/23 04/15/23 trazodone 100 mg tablet 100 mg PO HS 01/04/23 04/15/23 levothyroxine 100 mcg tablet 100 mcg PO DAILY 04/15/23 04/15/23 (Synthroid) meloxicam 15 mg tablet 15 mg PO DAILY 04/15/23 04/15/23 pantoprazole 40 mg tablet,delayed 40 mg PO DAILY 04/15/23 04/15/23 release (Protonix) Allergies Allergy/AdvReac Type Severity Reaction Status Date / Time cefaclor Allergy Unknown Skin Verified 04/15/23 12:42 Reaction Review of Systems Review of Systems: All systems reviewed & are unremarkable except as noted in HPI and below Constitutional: Constitutional: Reports as per HPI and Reports no additional constitutional complaints Eyes: Eyes: Reports as per HPI and Reports no additional eye complaints ENT: Reports system reviewed and no additional complaints, except as documented and Reports as per HPI Cardiovascular: Cardiovascular: Reports as per HPI and Reports no additional cardiovascular complaints Respiratory: Respiratory: Reports as per HPI and Reports no additional respiratory complaints Gastrointestinal: Gastrointestinal: Reports as per HPI and Reports no additional gastrointestinal complaints Genitourinary: Genitourinary: Reports no additional female genitourinary complaints and Reports as per HPI Musculoskeletal: Musculoskeletal: Reports no additional musculoskeletal complaints, Reports as per HPI and Reports back pain Comments: right elbow pain with decreased range of motion she has chronic low back pain following T9 compression fracture and takes Percocet on a p.r.n. basis. Integumentary/Breasts: Skin/Breast: Reports system reviewed and no additional complaints, except as docu and Reports as per HPI Neurologic: Reports system reviewed and no additional complaints, except as documented and Reports as per HPI Psychiatric: Psychiatric: Reports no additional psychiatric complaints and Reports as per HPI Endocrine: Endocrine: Reports no additional endocrine complaints and Reports as per HPI Hematologic/Lymphatic: Hematologic/Lymphatic: Reports no additional hematologic/lymphatic complaints and Reports as per HPI Allergic/Immunologic: Allergic/Immunologic: Reports no additional allergic/immunologic complaints and Reports as per HPI PMFSH Past Medical History Medical History Colitis Gastric bezoar Surgical History Surgical History H/O exploratory laparotomy Social History Social History Smoking status: Former smoker Substance use type: former substance user Exam Const: General: no acute distress Orientation/consciousness: patient oriented x3 Limitations: no limitations HENMT: Head: normal to inspection Ears: external ears normal Face/
[2023-06-10 06:57] VITALS: BP 126/60; PULSE 72; RESP 18; TEMP 37; O2SAT 100
[2023-06-10 07:50] VITALS: BP 131/77; PULSE 77; RESP 20; TEMP 36.6; O2SAT 97
--- NOTE | 2023-06-10 08:28 | PC.NURSE ---
resumed care of pt, introduced self to pt. warm blanket given, awaiting xray report.
--- NOTE | 2023-06-10 08:30 | PC.NURSE ---
0700 resumed care, introduced self to pt, warm blanket given. awaiting xray reports. call oliva in reach
== END 2023-06-10 08:02 | disposition home or self-care (01) ==
LOC: CHSED 07:30
PROVIDERS: Emergency Provider Emergency Medicine; PCP Family Medicine
DX: M25.521 Pain in right elbow (principal); M54.50 Low back pain, unspecified; G89.29 Other chronic pain; Z87.891 Personal history of nicotine dependence; W11.XXXA Fall on and from ladder, initial encounter; Y92.009 Unspecified place in unspecified non-institutional (private) residence as the place of occurrence of the external cause
CPT/HCPCS: 72100; 73080; 99284

== ENCOUNTER 2023-06-22 11:10 | Emergency (ER) | payer MEDICARE, SELFPAY ==
--- NOTE | ~2023-06-22 | CT_ITS ---
EXAMINATION: CT pelvis wo con DATE: 06/22/2023 11:34 INDICATION: Pelvic pain. Fall 2 weeks ago. TECHNIQUE: Computed tomography (CT) of the pelvis was performed without intravenous contrast. Automat ed exposure control and iterative reconstruction technique were employed. The dose-length product was 261.49 mGy-cm. COMPARISON: CT abdomen and pelvis 09/17/2022 FINDINGS: There is diverticulosis of the colon without evidence of diverticulitis. There are no patho logically enlarged lymph nodes. There is no free intraperitoneal fluid. There is lumbar dextrocurvatu re and mild spondylosis. No fracture. There is a benign bone island in right pelvis. There is mild os teoarthritis of the hips. IMPRESSION: 1. Mild osteoarthritis of the hips. Reviewed, dictated and finalized at location A.
[2023-06-22 11:10] VITALS: BP 99/56; PULSE 65; RESP 18; TEMP 36.7; O2SAT 95
--- NOTE | 2023-06-22 11:14 | ED.FALL ---
HPI - Fall General Chief Complaint: Fall Stated Complaint: fall Time Seen by Provider: 06/22/23 11:13 Source: patient and RN notes reviewed Mode of arrival: ambulatory Limitations: no limitations History of Present Illness HPI Narrative: patient states that she fell 2 weeks ago. She came in for x-rays and was found to have a chronic compression fracture at T9. Patient states that she hurts all over. She is hurting between her shoulder blades down in her lower back into her pelvis bilateral hips. She received some hydrocodone from her primary care physician but only 14 tabs. She has used all those and is asking for more hydrocodone. She has an appointment with pain clinic in 6 days. She says that she has tried some Tylenol and ibuprofen. complaint: fall Onset (ago): week(s) (2) Fall from: standing Fall witnessed: no Place fall occurred: home Context: tripped/slipped Location of injury: back and pelvis Related Data Home Medications Medication Instructions Recorded Confirmed eszopiclone 2 mg tablet (Lunesta) 2 mg PO DAILY 01/04/23 06/22/23 trazodone 100 mg tablet 100 mg PO HS 01/04/23 06/22/23 levothyroxine 100 mcg tablet 100 mcg PO DAILY 04/15/23 06/22/23 (Synthroid) meloxicam 15 mg tablet 15 mg PO DAILY 04/15/23 06/22/23 pantoprazole 40 mg tablet,delayed 40 mg PO DAILY 04/15/23 06/22/23 release (Protonix) olanzapine 5 mg tablet 5 mg PO DAILY 06/22/23 06/22/23 tizanidine 4 mg tablet 85 mg PO BID 06/22/23 06/22/23 Allergies Allergy/AdvReac Type Severity Reaction Status Date / Time cefaclor Allergy Unknown Skin Verified 06/22/23 11:19 Reaction Review of Systems Review of Systems: All systems reviewed & are unremarkable except as noted in HPI and below PMFSH Past Medical History Medical History Colitis Gastric bezoar Surgical History Surgical History H/O exploratory laparotomy Social History Social History Smoking status: Former smoker Substance use type: former substance user Exam Const: General: healthy appearing, no acute distress and alert Nutritional Appearance: well nourished Orientation/consciousness: patient oriented x3 Limitations: no limitations HENMT: Head: normal to inspection Ears: external ears normal Face/Nose/Sinus: Normal external nose present Face and sinus: normal facial exam Mouth: Yes Normal oral and palatal mucosa present and Yes moist mucous membranes Eyes: Conjunctivae: conjunctivae normal Pupils: Equal, round and reactive pupils present EOM: EOMs intact bilaterally Neck: Neck: normal visual inspection Resp: Effort & Inspection: normal respiratory effort Auscultation: clear to auscultation bilaterally Cardio: Rate: regular rate Rhythm: regular rhythm GI: GI Palp: Yes Soft to palpation and No Tenderness to palpation present (GI) Auscultation: normal bowel sounds Back/Spine/Pelvis: Cervical Spine: cervical ROM normal Thoracic/Lumbar Spine: thoraco-lumbar ROM normal and thoraco-lumbar spasm bilaterally in the mid thoracic and in the lower lumbar Course Course Emergency Course: offered patient Toradol injection and she declined. I explained to the patient that I will not be able to provide her a prescription for narcotics as she is already being treated by her primary care and has an appointment with pain management. She should call her primary care physician to have 1 person prescribing her narcotics. Patient asked for a shot something besides Toradol I offered her Norflex which she declined. Vital Signs Vital signs: Vital Signs Temperature 36.7 C 06/22/23 11:10 Pulse Rate 65 06/22/23 11:10 Respiratory Rate 18 06/22/23 11:10 Blood Pressure 99/56 L 06/22/23 11:10 Pulse Oximetry 95 06/22/23 11:10 Oxygen Delivery Room Air 06/22/23 11:10 Temperature 36.7 C 06/11
[2023-06-22 11:22] VITALS: BP 99/56; PULSE 65; RESP 18; TEMP 36.7; O2SAT 95
--- NOTE | 2023-06-22 11:54 | PC.NURSE ---
PT OUT TO RN STATION REQUESTING A PAIN SHOT . PT REPORTS SHE CAN GET A RIDE HOME IF NEEDED. ERP NOTIFIED. ADVISED PT THAT ERP WILL ORDER AND INJECTION OF A MUSCLE RELAXER, PT DECLINES. REPORTS SHE WILL TAKE HER TIZANIDINE AT HOME.
--- NOTE | 2023-06-22 11:58 | PC.NURSE ---
PT HAD ALSO DECLINED A TORADOL INJECTION
== END 2023-06-22 12:00 | disposition home or self-care (01) ==
PROVIDERS: Emergency Provider Emergency Medicine; PCP Family Medicine
DX: M25.552 Pain in left hip (principal); M25.551 Pain in right hip; Z79.899 Other long term (current) drug therapy; Z79.1 Long term (current) use of non-steroidal anti-inflammatories (NSAID); Z87.891 Personal history of nicotine dependence
CPT/HCPCS: 72192; 99284

== ENCOUNTER 2023-09-16 09:41 | Emergency (ER) | payer MEDICARE, SELFPAY ==
--- NOTE | 2023-09-16 09:51 | ED.GENADULT ---
HPI - General Adult General Chief complaint: Unspecified Stated complaint: needs refill on med Source: patient and RN notes reviewed Mode of arrival: ambulatory Limitations: no limitations History of Present Illness HPI narrative: Patient is a 68-year-old female who presents to the [facility] with request for medication refill. Patient reports history of arthritis and fibromyalgia. Patient also reports history of prior fractures. States that she has had a sternum fracture, multiple rib fractures, right forearm fracture, and T9 fracture. Patient states that her pain except in the wintertime with cold temperatures. She attempted to call her primary care physician and pain management doctor who both have prescribed tizanidine for her pain, but was told she will be unable to get a refill until her appointment which is scheduled for the October. Patient denies new injury. Denies numbness or tingling. Related Data Home Medications Medication Instructions Recorded Confirmed eszopiclone 2 mg tablet (Lunesta) 2 mg PO DAILY 01/04/23 06/22/23 trazodone 100 mg tablet 100 mg PO HS 01/04/23 06/22/23 levothyroxine 100 mcg tablet 100 mcg PO DAILY 04/15/23 06/22/23 (Synthroid) meloxicam 15 mg tablet 15 mg PO DAILY 04/15/23 06/22/23 pantoprazole 40 mg tablet,delayed 40 mg PO DAILY 04/15/23 06/22/23 release (Protonix) olanzapine 5 mg tablet 5 mg PO DAILY 06/22/23 06/22/23 tizanidine 4 mg tablet 85 mg PO BID 06/22/23 06/22/23 Allergies Allergy/AdvReac Type Severity Reaction Status Date / Time cefaclor Allergy Unknown Skin Verified 06/22/23 11:19 Reaction Review of Systems Review of Systems: CONSTITUTIONAL: Denies fever, chills, or sweats. EYES: Denies visual changes, redness, or discharge. ENT: Denies otalgia and sore throat CARDIOVASCULAR: Denies chest pain, palpitations, or edema. RESPIRATORY: Denies cough or dyspnea. GASTROINTESTINAL: Denies abdominal pain, nausea, vomiting, or diarrhea. GENITOURINARY: Denies dysuria or hematuria. SKIN: Denies rash or itching. MUSCULOSKELETAL: Denies myalgia. Reports joint pain. NEUROLOGIC: Denies headache, numbness, or weakness. Pertinent positives per HPI. PMFSH Past Medical History Medical History Colitis Gastric bezoar Surgical History Surgical History H/O exploratory laparotomy Social History Social History Smoking status: Former smoker Substance use type: former substance user Comments At the time of my signature, I reviewed and agree with the nursing past medical, surgical, social, and family history. There is no relevant family history pertinent to the patient complaint. Exam Narrative: GENERAL: This is a well-nourished, well-developed patient, in no apparent distress. HEAD: normocephalic, atraumatic. EYES: PERRL. Sclera clear/white. Vision is grossly intact. EARS: External ears normal, auditory canals clear and without drainage, TMs normal without perforation. Hearing grossly intact. NOSE: External nose normal with no obvious nasal discharge, nares without redness, no rhinorrhea. THROAT: Mucous membranes moist, posterior pharynx clear. NECK: Neck supple, non-tender without lymphadenopathy, masses or thyromegaly. CARDIOVASCULAR: Regular rate and rhythm without murmurs, gallops, or rubs. RESPIRATORY: Clear to auscultation. Breath sounds equal bilaterally. No wheezes, rales, or rhonchi. GASTROINTESTINAL: Abdomen soft, non-tender, nondistended. Bowel sounds are active. No hepato-splenomegaly, or palpable masses. No guarding. SKIN: warm, intact with no suspicious lesions or rash, good texture and turgor. NEURO: awake, alert, and oriented to person, place and time. There were no obvious focal neurologic abnormalities. EXTREMITIES: No clubbing, cyanosis, or edema. No joint tendernes
[2023-09-16 09:56] VITALS: BP 133/66; PULSE 75; RESP 20; TEMP 36.5; O2SAT 97
== END 2023-09-16 10:13 | disposition home or self-care (01) ==
PROVIDERS: Emergency Provider Nurse Practitioner; PCP Family Medicine
DX: M19.90 Unspecified osteoarthritis, unspecified site (principal); Z87.891 Personal history of nicotine dependence
CPT/HCPCS: 99213; G0463

== ENCOUNTER 2023-09-28 12:40 | Emergency (ER) | payer MEDICARE, SELFPAY ==
[2023-09-28 12:40] VITALS: BP 115/78; PULSE 81; RESP 16; TEMP 36.4; O2SAT 100
--- NOTE | 2023-09-28 13:05 | ED.GENADULT ---
HPI - General Adult General Chief complaint: Unspecified Stated complaint: arthritis pain; med refill Time Seen by Provider: 09/28/23 13:03 History of Present Illness HPI narrative: This is a 68-year-old female with fibromyalgia presenting for a medication refill. Patient was recently prescribed tizanidine which she has found give her significant pain relief. She has an appointment see her pain specialist on October 12. She is looking for a refill to get her through to that appointment. patient states this is her chronic pain, no new features or trauma. Related Data Home Medications Medication Instructions Recorded Confirmed eszopiclone 2 mg tablet (Lunesta) 2 mg PO DAILY 01/04/23 09/28/23 trazodone 100 mg tablet 100 mg PO HS 01/04/23 09/28/23 levothyroxine 100 mcg tablet 100 mcg PO DAILY 04/15/23 09/28/23 (Synthroid) meloxicam 15 mg tablet 15 mg PO DAILY 04/15/23 09/28/23 pantoprazole 40 mg tablet,delayed 40 mg PO DAILY 04/15/23 09/28/23 release (Protonix) olanzapine 5 mg tablet 5 mg PO DAILY 06/22/23 09/28/23 Allergies Allergy/AdvReac Type Severity Reaction Status Date / Time cefaclor Allergy Unknown Skin Verified 06/22/23 11:19 Reaction PMFSH Past Medical History Medical History Colitis Gastric bezoar Surgical History Surgical History H/O exploratory laparotomy Social History Social History Smoking status: Former smoker Substance use type: former substance user Exam Narrative: APPEARANCE: No apparent distress. Head: atraumatic. EYES: EOMI, NOSE: Atraumatic NECK: Trachea midline RESPIRATORY: No increased rate of breathing CARDIOVASCULAR: RRR, ABDOMINAL: Non-distended MUSCULOSKELETAl: No obvious deformities NEURO: Alert. Moving 4/4 extremities SKIN:: Warm, dry. Normal color PSYCHIATRIC: Normal affect Course Vital Signs Vital signs: Vital Signs Temperature 97.6 F 09/28/23 12:40 Pulse Rate 81 09/28/23 12:40 Respiratory Rate 16 09/28/23 12:40 Blood Pressure 115/78 09/28/23 12:40 Pulse Oximetry 100 09/28/23 12:40 Oxygen Delivery Room Air 09/28/23 12:40 Temperature 97.6 F 09/28/23 12:40 Pulse Rate 81 09/28/23 12:40 Respiratory Rate 16 09/28/23 12:40 Blood Pressure 115/78 09/28/23 12:40 Pulse Oximetry 100 09/28/23 12:40 Oxygen Delivery Room Air 09/28/23 12:40 Medical Decision Making MDM Narrative Medical decision making narrative: -Course: 68-year-old female with fibromyalgia presenting for medication refill. She is requesting tizanidine which has brought her significant relief. Tizanidine is not a controlled substance. She will be given a prescription to get her through to her office visit. Instructed to follow-up with primary care physician. Patient was informed that is not appropriate for to continuously return to ERs / urgent cares for medication refills and this needs to be obtained at her scheduled office visits. -DDX includes but is not limited to: fibromyalgia, chronic pain, muscle spasm, arthritis -Co-morbidities complicating care:hx of opiate addiction on suboxone. -Social determinants of health: disabled due to chronic pain, -External Chart Review: review urgent care notes for medication refill -Shared decision making / Disposition: discharged -RX Tizanidine. Vital Signs Vital Signs: Vital Signs Temperature 97.6 F 09/28/23 12:40 Pulse Rate 81 09/28/23 12:40 Respiratory Rate 16 09/28/23 12:40 Blood Pressure 115/78 09/28/23 12:40 Pulse Oximetry 100 09/28/23 12:40 Oxygen Delivery Room Air 09/28/23 12:40 Temperature 97.6 F 09/28/23 12:40 Pulse Rate 81 09/28/23 12:40 Respiratory Rate 16 09/28/23 12:40 Blood Pressure 115/78 09/28/23 12:40 Pulse Oximetry 100 09/28/23 12:40 Oxygen Delivery Room
[2023-09-28 13:23] VITALS: BP 115/78; PULSE 81; RESP 16; TEMP 36.4; O2SAT 100
== END 2023-09-28 13:23 | disposition home or self-care (01) ==
LOC: CHSED 13:16
PROVIDERS: Emergency Provider Emergency Medicine; PCP Family Medicine
DX: M79.7 Fibromyalgia (principal); Z79.899 Other long term (current) drug therapy; Z87.891 Personal history of nicotine dependence
CPT/HCPCS: 99283

== ENCOUNTER 2023-11-16 10:32 | Emergency (ER) | payer MEDICARE, SELFPAY ==
[2023-11-16] VITALS (20 sets, daily range): BP systolic 60–130; BP diastolic 45–79; PULSE 49–72; RESP 11–21; TEMP 36.7–36.8; O2SAT 92–99
--- NOTE | ~2023-11-16 | CT_ITS ---
EXAMINATION: CT brain wo con INDICATION: Head injury COMPARISON: None TECHNIQUE: Standard unenhanced head CT. The dose-length product (DLP) was 605.33 mGy-cm. The mA was a djusted according to patient size. Iterative reconstruction technique was employed. FINDINGS: No acute intraparenchymal hemorrhage. No evidence of mass lesion. No evidence of acute infa rction. There is mild periventricular and subcortical hypodensity probably related to small vessel is chemic disease. There is mild prominence of the sulci and ventricles related to cerebral atrophy. Int racranial calcified cerebral atherosclerosis is noted. No extra-axial collections. No mass effect or midline shift. The orbits and soft tissues are unremarkable. There is mild mucosal thickening of the paranasal sinuses. IMPRESSION: 1. No acute intracranial abnormality. 2. Age related findings. Reviewed, dictated and finalized at location L. MBLY MACHINE FEEDER
--- NOTE | ~2023-11-16 | CT_ITS ---
EXAMINATION: CT facial & cervical spine wo DATE: 11/16/2023 12:57 INDICATION: Head injury. TECHNIQUE: Computed tomography (CT) of the maxillofacial region and cervical spine was performed with out intravenous contrast. Automated exposure control and iterative reconstruction technique were empl oyed. The dose-length product was 605.33 mGy-cm. COMPARISON: None FINDINGS: MAXILLOFACIAL CT: There is leftward deviation of the nasal septum. No fracture. There is mild mucosal thickening in rig ht maxillary sinus. The orbits are normal. The mastoid air cells are normal. There is severe osteoart hritis of the temporomandibular joints. CERVICAL SPINE CT: Bone alignment is normal. Vertebral body heights are normal. There is mildly decreased disc height at C4-C5 and severely decreased disc height at C5-C6. The following disc levels are specifically discus sed: C2-C3: There is no uncovertebral joint osteoarthritis. There is mild bilateral facet joint osteoarthr itis. There is no neural foraminal stenosis. There is no central canal stenosis. C3-C4: There is mild right uncovertebral joint osteoarthritis. There is mild bilateral facet joint os teoarthritis. There is no neural foraminal stenosis. There is no central canal stenosis. C4-C5: There is moderate right and severe left uncovertebral joint osteoarthritis. There is severe bi lateral facet joint osteoarthritis. There is mild bilateral neural foraminal stenosis. There is mild central canal stenosis. C5-C6: There is severe bilateral uncovertebral joint osteoarthritis. There is mild bilateral facet margoth int osteoarthritis. There is mild bilateral neural foraminal stenosis. There is mild central canal st enosis. C6-C7: There is no uncovertebral joint osteoarthritis. There is no facet joint osteoarthritis. There is no neural foraminal stenosis. There is no central canal stenosis. C7-T1: There is no uncovertebral joint osteoarthritis. There is moderate and severe left facet joint osteoarthritis. There is no neural foraminal stenosis. There is no central canal stenosis. IMPRESSION: 1. No fracture. 2. Severe cervical spondylosis. Reviewed, dictated and finalized at location A. WORKER
--- NOTE | ~2023-11-16 | XR_ITS ---
EXAMINATION: XR chest 1V portable DATE: 11/16/2023 11:07 INDICATION: Fall. TECHNIQUE: A single frontal view of the chest was obtained. COMPARISON: Chest 2 views 10/27/22, CT abdomen and pelvis 09/17/2022 FINDINGS: There is no pneumonia, pleural effusion, or pneumothorax. The heart size is normal. IMPRESSION: 1. No acute cardiopulmonary disease. Reviewed, dictated and finalized at location A. WEAR SALES ASSOCIATE
--- NOTE | 2023-11-16 10:36 | ED.FALL ---
HPI - Fall General Chief Complaint: Fall Stated Complaint: Fall R side face pain Time Seen by Provider: 11/16/23 10:36 Source: patient Mode of arrival: ambulatory Limitations: no limitations History of Present Illness HPI Narrative: Patient is a 68-year-old female with recurrent syncopal episodes with hypotension and vasovagal events. She had an event today and was brought to the ER for further workup. Her pressure was low noted on entry to the ER. She got 1 L of fluid and feels better. She hurt her head and face. MD complaint: fall Onset (ago): hour(s) (1) Fall from: standing Fall witnessed: no and yes, by bystander ( Son says he witnesses at other times and her pressure is always low) Place fall occurred: home Loss of consciousness: yes Length of LOC: second(s) Prolonged down time: no Symptoms prior to fall: lightheadedness Context: history of frequent falls ( with syncope) Location of injury: head and face Severity: mild Severity scale (1-10): 2 Quality: aching Associated symptoms (after fall): denies Related Data Home Medications Medication Instructions Recorded Confirmed eszopiclone 2 mg tablet (Lunesta) 2 mg PO DAILY 01/04/23 11/16/23 trazodone 100 mg tablet 100 mg PO HS 01/04/23 11/16/23 levothyroxine 100 mcg tablet 100 mcg PO DAILY 04/15/23 11/16/23 (Synthroid) meloxicam 15 mg tablet 15 mg PO DAILY 04/15/23 11/16/23 pantoprazole 40 mg tablet,delayed 40 mg PO DAILY 04/15/23 11/16/23 release (Protonix) olanzapine 5 mg tablet 5 mg PO DAILY 06/22/23 11/16/23 Allergies Allergy/AdvReac Type Severity Reaction Status Date / Time cefaclor Allergy Unknown Skin Verified 11/16/23 10:45 Reaction Review of Systems Review of Systems: All systems reviewed & are unremarkable except as noted in HPI and below Constitutional: Constitutional: Reports no additional constitutional complaints Eyes: Eyes: Reports no additional eye complaints ENT: Reports system reviewed and no additional complaints, except as documented Cardiovascular: Cardiovascular: Reports no additional cardiovascular complaints Respiratory: Respiratory: Reports no additional respiratory complaints Gastrointestinal: Gastrointestinal: Reports no additional gastrointestinal complaints Genitourinary: Genitourinary: Reports no additional female genitourinary complaints Musculoskeletal: Musculoskeletal: Reports no additional musculoskeletal complaints Integumentary/Breasts: Skin/Breast: Reports system reviewed and no additional complaints, except as docu Neurologic: Reports system reviewed and no additional complaints, except as documented Psychiatric: Psychiatric: Reports no additional psychiatric complaints Endocrine: Endocrine: Reports no additional endocrine complaints Hematologic/Lymphatic: Hematologic/Lymphatic: Reports no additional hematologic/lymphatic complaints Allergic/Immunologic: Allergic/Immunologic: Reports no additional allergic/immunologic complaints PMFSH Past Medical History Medical History Colitis Gastric bezoar Surgical History Surgical History H/O exploratory laparotomy Social History Social History Smoking status: Former smoker Substance use type: former substance user Exam Const: General: ill appearing Nutritional Appearance: well nourished Orientation/consciousness: patient oriented x3 HENMT: Head: normal to inspection Ears: external ears normal Face/Nose/Sinus: Normal external nose present Eyes: Conjunctivae: conjunctivae normal Pupils: Equal, round and reactive pupils present EOM: EOMs intact bilaterally Neck: Neck: normal visual inspection Chest: Chest palpation & inspection: normal inspection of the chest Resp: Effort & Inspection: normal respiratory effort and not labored Auscultation: clear to auscultation geno
--- NOTE | 2023-11-16 10:38 | ECG_ITS ---
Measurements Intervals [place] Rate: 50 P: 22 VT: 148 QRS: 49 QRSD: 73 T: 23 QT: 473 QTc: 433 Interpretive Statements SINUS BRADYCARDIA WITH MARKED SINUS ARRHYTHMIA NONSPECIFIC T-WAVE ABNORMALITY COMPARED TO ECG 09/17/2022 09:09:02 SINUS ARRHYTHMIA NOW PRESENT Electronically Signed On 11-16-2023 13:49:16 DIETARY COOK by Lillian Wilson M.D.
[2023-11-16] MEDS: SODIUM CHLORIDE 0.9% IV 1,000 ML 999 ML IV CONT (10:49)
[2023-11-16 10:57] LABS: Basophils Absolute Auto 0.05 K/mm3 (0.00-0.10); Basophils Percent Auto 0.6 % (0.0-1.0); Eosinophils Absolute Auto 0.23 K/mm3 (0.02-0.50); Hematocrit 35.9 % (35.0-42.0); Hemoglobin 11.6 g/dL (11.7-13.8); Immature Granulocyte Absolute 0.03 K/mm3 (0.00-0.00); Immature Granulocyte Percent A 0.4 % (0.0-0.0); Lymphocytes Absolute Auto 2.01 K/mm3 (1.10-4.50); Lymphocytes Percent Auto 26.1 % (18.0-42.0); Mean Corpuscular HGB Conc 32.3 g/dL (32.0-36.0); Mean Corpuscular Hemoglobin 30.4 pg (27.0-31.0); Mean Platelet Volume 10.1 fl (9.2-11.8); Monocytes Absolute Auto 0.41 K/mm3 (0.10-0.90); Monocytes Percent Auto 5.3 % (2.0-11.0); Neutrophils Percent Auto 64.6 % (50.0-70.0); Platelet Count Result 259 K/mm3 (150-420); Red Blood Count 3.82 M/mm3 (4.20-5.40); Red Cell Distribution Width 12.1 % (11.6-14.4); White Blood Count 7.7 K/mm3 (4.8-10.8)
[2023-11-16 11:16] LABS: Lactic Acid Reflex 1.2 mmol/L (0.4-2.0)
[2023-11-16 11:25] LABS: Alanine Aminotransferase 17 U/L (14-59); Albumin Level 3.1 g/dL (3.4-5.0); Alkaline Phosphatase 65 U/L (46-116); Anion Gap 9 mmol/L (8-16); Aspartate Amino Transferase 15 U/L (15-37); Bilirubin,Total 0.3 mg/dL (0.00-1.00); Blood Urea Nitrogen 16 mg/dL (7-18); Calcium 8.7 mg/dL (8.5-10.1); Carbon Dioxide 28 mmol/L (21-32); Chloride 104 mmol/L (98-108); Estimated Glomerular Filt Rate 51; Glucose 136 mg/dL (70-99); Osmolality Calculated 295 mOsm/kg (285-295); Sodium 141 mmol/L (136-145); Total Protein 6.5 g/dL (6.4-8.2); Troponin I 10.1 ng/L (0.00-60.4)
--- NOTE | 2023-11-16 11:30 | PC.NURSE ---
PT UP TO RR WITH ASSISTANCE PER TECH AND WC. UA COLLECTED. PT IS A&O X4, REPORTS SHE IS FEELING BETTER. ICE CHIPS PROVIDED. PT IS AWAITING ERP EXAM AND RESULTS. WILL CONTINUE TO MONITOR. NAD NOTED AT THIS TIME.
[2023-11-16 11:39] LABS: Influenza A QL RT-PCR Negative (Negative); Influenza B QL RT-PCR Negative (Negative); RSV RNA, RT-PCR Negative (Negative); SARS-CoV-2 RNA PCR Negative (Negative)
[2023-11-16 12:08] LABS: Appearance Urine Clear (Clear); Bilirubin Urine Negative (Negative); Blood Urine Negative (Negative); Color Urine Yellow (Yellow); Glucose Urine UA Negative (Negative); Ketones Urine Negative (Negative); Leukocyte Esterase Ur Negative LEU/UL (Negative); Nitrate Urine Negative (Negative); Protein Urine Negative (Negative); Specific Grav Ur 1.015 (1.010-1.020); Urobilinogen Urine 0.2 mg/dL (0.2-1.0)
[2023-11-16 12:14] LABS: Add Urine Microscopic? NO
--- NOTE | 2023-11-16 12:28 | PC.NURSE ---
PT IS LYING ON STRETCHER, ALERT REPORTING SHE IS READY TO LEAVE. PT VSS PER MONITOR. PT COLOR HAS IMPROVED. PT DENIES ANY NEEDS OR COMPLAINTS. PT IS AWAITING ERP ASSESSMENT AND DECISION AT THIS TIME. WILL CONTINUE TO MONITOR. NAD NOTED.
--- NOTE | 2023-11-16 13:19 | PC.NURSE ---
ERP AT BEDSIDE FOR EVALUATION
--- NOTE | 2023-11-16 13:44 | PC.NURSE ---
ERP HAS SPOKEN WITH PMD, PT TO BE DC HOME
--- NOTE | 2023-11-22 12:05 | PC.NURSE ---
Final blood culture report, no growth after 5 days, no further action or treatment needed.
== END 2023-11-16 13:50 | disposition home or self-care (01) ==
PROVIDERS: Emergency Provider Emergency Medicine; PCP Family Medicine
DX: R55 Syncope and collapse (principal); I95.9 Hypotension, unspecified; R00.1 Bradycardia, unspecified; S09.90XA Unspecified injury of head, initial encounter; Z79.899 Other long term (current) drug therapy; Z79.1 Long term (current) use of non-steroidal anti-inflammatories (NSAID); Z87.891 Personal history of nicotine dependence; Z20.822 Contact with and (suspected) exposure to COVID-19; W18.30XA Fall on same level, unspecified, initial encounter
CPT/HCPCS: 36415; 70450; 70486; 71045; 72125; 80053; 81003; 83605; 84484; 85025; 87040; 87637; 93005; 96360; 99284; J7030

== ENCOUNTER 2024-01-02 13:27 | Emergency (ER) | payer MEDICARE, SELFPAY ==
[2024-01-02] VITALS (18 sets, daily range): BP systolic 95–133; BP diastolic 45–102; PULSE 39–58; RESP 14–21; TEMP 36.4; O2SAT 93–98
--- NOTE | ~2024-01-02 | XR_ITS ---
EXAMINATION: XR chest 1V portable 01/02/2024 13:50 INDICATION: Hypotension PROCEDURE: AP portable chest COMPARISON: 11/16/2023 FINDINGS: The lungs are clear. The cardiomediastinal silhouette is within normal limits. There are no pleural effusions. There is no pneumothorax suspected. IMPRESSION: 1: NO ACUTE CARDIOPULMONARY DISEASE. Reviewed, dictated and finalized at location A.
--- NOTE | 2024-01-02 13:29 | ED.SYNCOPE ---
HPI - Syncope General Chief Complaint: Dizziness Stated Complaint: dizzy Time Seen by Provider: 01/02/24 13:29 Source: patient Mode of arrival: ambulatory Limitations: no limitations History of Present Illness HPI narrative: Patient is a 68-year-old female with near-syncope today. EMS was called and she had hypotension and bradycardia. She took tizanidine and was told that this could be causing her troubles and was told not to take the medicine but she took it anyway today. She was here recently for similar and had syncope. This has been ongoing for 6 months. as an aside, patient has history of opioid abuse. MD complaint: felt faint and almost passed out Onset (ago): hour(s) (1) Prodromal symptoms: vision changes and lightheaded Witnessed: No Context: at rest and new medication Injuries sustained associated with event: none Current symptoms: none History: previous syncopal episode Treatments prior to arrival: none Related Data Home Medications Medication Instructions Recorded Confirmed trazodone 100 mg tablet 100 mg PO HS 01/04/23 01/02/24 levothyroxine 100 mcg tablet 100 mcg PO DAILY 04/15/23 01/02/24 (Synthroid) pantoprazole 40 mg tablet,delayed 40 mg PO DAILY 04/15/23 01/02/24 release (Protonix) olanzapine 5 mg tablet 5 mg PO DAILY 06/22/23 01/02/24 Allergies Allergy/AdvReac Type Severity Reaction Status Date / Time cefaclor Allergy Unknown Skin Verified 11/16/23 10:45 Reaction Review of Systems Review of Systems: All systems reviewed & are unremarkable except as noted in HPI and below Constitutional: Constitutional: Reports no additional constitutional complaints Eyes: Eyes: Reports no additional eye complaints ENT: Reports system reviewed and no additional complaints, except as documented Cardiovascular: Cardiovascular: Reports no additional cardiovascular complaints Respiratory: Respiratory: Reports no additional respiratory complaints Gastrointestinal: Gastrointestinal: Reports no additional gastrointestinal complaints Genitourinary: Genitourinary: Reports no additional female genitourinary complaints Musculoskeletal: Musculoskeletal: Reports no additional musculoskeletal complaints Integumentary/Breasts: Skin/Breast: Reports system reviewed and no additional complaints, except as docu Neurologic: Reports system reviewed and no additional complaints, except as documented Psychiatric: Psychiatric: Reports no additional psychiatric complaints Endocrine: Endocrine: Reports no additional endocrine complaints Hematologic/Lymphatic: Hematologic/Lymphatic: Reports no additional hematologic/lymphatic complaints Allergic/Immunologic: Allergic/Immunologic: Reports no additional allergic/immunologic complaints PMFSH Past Medical History Medical History Colitis Gastric bezoar Surgical History Surgical History H/O exploratory laparotomy Social History Social History Smoking status: Former smoker Substance use type: former substance user Exam Const: General: healthy appearing Nutritional Appearance: well nourished Orientation/consciousness: patient oriented x3 HENMT: Head: normal to inspection Ears: external ears normal Face/Nose/Sinus: Normal external nose present Eyes: Conjunctivae: conjunctivae normal Pupils: Equal, round and reactive pupils present EOM: EOMs intact bilaterally Neck: Neck: normal visual inspection Chest: Chest palpation & inspection: normal inspection of the chest Resp: Effort & Inspection: normal respiratory effort and not labored Auscultation: clear to auscultation bilaterally Cardio: Rate: regular rate Rhythm: regular rhythm Heart sounds: no murmurs GI: Inspection: non-distended GI Palp: Yes Soft to palpation and No Tenderness to palpation present (GI) Auscultation: normal
--- NOTE | 2024-01-02 13:37 | ECG_ITS ---
Measurements Intervals [place] Rate: 39 P: 7 PA: 152 QRS: 17 QRSD: 81 T: 34 QT: 472 QTc: 385 Interpretive Statements SLOW SINUS BRADYCARDIA ABNORMAL ECG COMPARED TO ECG 11/16/2023 10:49:21 HEART RATE HAS DECREASED Electronically Signed On 01-02-2024 16:52:51 CDT by Den Quintana D.O.
[2024-01-02] MEDS: SODIUM CHLORIDE 0.9% IV 1,000 ML 999 ML IV CONT (14:11)
[2024-01-02] MEDS: ACETAMINOPHEN 500 MG TABLET 1000 MG PO (14:33)
[2024-01-02 14:43] LABS: Basophils Absolute Auto 0.05 K/mm3 (0.00-0.10); Basophils Percent Auto 0.9 % (0.0-1.0); Eosinophils Percent Auto 3.6 % (1.0-6.0); Hematocrit 34.3 % (35.0-42.0); Hemoglobin 10.5 g/dL (11.7-13.8); Immature Granulocyte Absolute 0.02 K/mm3 (0.00-0.00); Immature Granulocyte Percent A 0.4 % (0.0-0.0); Lymphocytes Absolute Auto 1.18 K/mm3 (1.10-4.50); Mean Corpuscular HGB Conc 30.6 g/dL (32-36); Mean Corpuscular Hemoglobin 30.5 pg (27.0-31.0); Mean Corpuscular Volume 99.7 fL (78.0-102.0); Mean Platelet Volume 10.7 fl (9.2-11.8); Monocytes Absolute Auto 0.51 K/mm3 (0.10-0.90); Monocytes Percent Auto 9.1 % (2.0-11.0); Neutrophils Absolute Auto 3.65 K/mm3 (1.70-7.20); Platelet Count Result 201 K/mm3 (150-420); Red Blood Count 3.44 M/mm3 (4.20-5.40); Red Cell Distribution Width 12.6 % (11.6-14.4); White Blood Count 5.6 K/mm3 (4.8-10.8)
[2024-01-02 14:54] LABS: D Dimer 0.38 mg/L (0.19-0.50)
[2024-01-02 14:59] LABS: Lactic Acid Reflex 0.9 mmol/L (0.4-2.0)
[2024-01-02 15:07] LABS: Alanine Aminotransferase 10 U/L (14-59); Alkaline Phosphatase 46 U/L (46-116); Anion Gap 11 mmol/L (8-16); Aspartate Amino Transferase 12 U/L (15-37); Bilirubin,Total 0.3 mg/dL (0.00-1.00); Blood Urea Nitrogen 13 mg/dL (7-18); Calcium 8.1 mg/dL (8.5-10.1); Carbon Dioxide 23 mmol/L (21-32); Chloride 103 mmol/L (98-108); Estimated CRCL calculation 41 ml/min; Estimated Glomerular Filt Rate 54; Glucose 110 mg/dL (70-99); NT Pro B Type Natriuretic Pept 381 pg/mL (0-125); Osmolality Calculated 285 mOsm/kg (285-295); Potassium 3.5 mmol/L (3.5-5.1); Sodium 137 mmol/L (136-145); Thyroid Stimulating Hormone 0.01 uIU/mL (0.36-3.74); Total Protein 5.7 g/dL (6.4-8.2); Troponin I 8.7 ng/L (0.00-60.4)
[2024-01-02 15:33] LABS: Bilirubin Urine Negative (Negative); Blood Urine Negative (Negative); Color Urine Light Yellow (Yellow); Glucose Urine UA Negative (Negative); Ketones Urine Negative (Negative); Leukocyte Esterase Ur 1+ LEU/UL (Negative); Nitrate Urine Negative (Negative); Protein Urine Negative (Negative); Specific Grav Ur 1.015 (1.010-1.020); Urobilinogen Urine 0.2 mg/dL (0.2-1.0); pH Urine 6.5 (5.0-8.0)
[2024-01-02 15:35] LABS: Amphetamine Screen Urine Negative (Negative); Barbiturate Screen Urine Negative (Negative); Benzodiazepines Screen Urine Negative (Negative); Cannabinoid Screen Urine Negative (Negative); Cocaine Screen Urine Negative (Negative); Methadone Screen Urine Negative (Negative); Opiate Screen Urine Negative (Negative); Phencyclidine Screen Urine Negative (Negative)
[2024-01-02 15:45] LABS: Add Urine Microscopic? YES; Appearance Urine Sl Cloudy (Clear); Bacteria Urine Trace /hpf; Hyaline Casts Urine 15-19 /lpf; Renal Epithelial Cells Urine Occasional /hpf; Squamous Epithelial Cell Urine Many /hpf (Few)
[2024-01-02 15:46] LABS: Mucus Urine Few /lpf
[2024-01-02 16:06] LABS: Free T4 Free Thyroxine 1.02 ng/dL (0.76-1.46)
[2024-01-02] MEDS: CIPROFLOXACIN 500 MG TAB PO (16:31)
--- NOTE | 2024-01-06 15:04 | PC.NURSE ---
urine culture noted, started on cipro. no change needed per dr tadeo.
--- NOTE | 2024-01-09 12:40 | PC.NURSE ---
FINAL BLOOD CULTURE REPORT: No growth after 5 days, no further action or treatment needed!
== END 2024-01-02 16:34 | disposition home or self-care (01) ==
PROVIDERS: Emergency Provider Emergency Medicine; PCP Family Medicine
DX: I95.89 Other hypotension (principal); R00.1 Bradycardia, unspecified; N39.0 Urinary tract infection, site not specified; F11.11 Opioid abuse, in remission
CPT/HCPCS: 36415; 71045; 80053; 80307; 81001; 83605; 83880; 84439; 84443; 84484; 85025; 85380; 87040; 87077; 87086; 87088; 87186; 93005; 96360; 99284; A9270; J7030